=== PATIENT | female | born 1935 | race Caucasian/White ===

== ENCOUNTER 2017-05-31 07:31 | Inpatient (IN) | payer OTHER ==
[2017-05-31] VITALS (7 sets, daily range): BP systolic 132–161; BP diastolic 74–89; PULSE 74–99; TEMP 36.6–36.8; O2SAT 95–96; Ht 165.1 cm; Wt 83.0 kg
[~2017-05-31] VITALS: Ht 165.1 cm; Wt 83.0 kg
[~2017-05-31 07:31] MED LIST: ALEN1TAB21 PO; ASPI81TA21 PO; CALC1TAB64 PO; LEVO75TA5 PO; VTMD PO; ZCR40 PO
[2017-05-31] MEDS ORDERED: SODIUM CHLORIDE 0.9% 1000ML 1,000 ML IV STA ×2 (07:33)
[2017-05-31] MEDS ORDERED: LORAZEPAM 2 MG/ML 1 ML VIAL IV STA (07:44)
[2017-05-31] MEDS ORDERED: HALOPERIDOL LACTATE 5 MG/ML 1 ML VIAL IV STA (07:46)
[2017-05-31 08:30] LABS: BASO % 0.4 %; BASO ABS # 0.03 K/uL (0-0.2); COMPLETE YES; EOS % 3.3 %; HEMATOCRIT 42.3 % (37-47); IG% 0.1 %; LYMPH % 24.5 %; LYMPH ABS # 1.71 K/uL (1.2-3.4); MEAN CELL VOLUME 90.2 fL (80-100); MEAN CORPUSCULAR HGB CONC 32.2 g/dl (32-36); MEAN PLATELET VOLUME 9.3 fL (7.4-10.4); MONO % 7.2 %; NEUT % 64.5 %; PLATELET COUNT 188 K/uL (130-400); RED BLOOD COUNT 4.69 M/uL (4.2-5.4); WHITE BLOOD COUNT 6.98 K/uL (4.8-10.8)
[2017-05-31 08:41] LABS: INR 0.9 (0.9-1.1); PARTIAL THROMBOPLASTIN RATIO 0.9
--- NOTE | 2017-05-31 08:42 | DIAGNOSTIC IMAGING REPORT ---
CHEST ONE VIEW PORTABLE CLINICAL HISTORY: 81 years-old Female presenting with EVALUATE WEAKNESS. TECHNIQUE: Portable upright AP view of the chest was obtained. COMPARISON: None. FINDINGS: Atherosclerosis of the aortic arch. Cardiomediastinal silhouette otherwise normal. Lungs and pleural spaces clear. Degenerative changes of the right acromioclavicular joint. Upper abdomen normal. IMPRESSION: 1. No acute cardiopulmonary disease. Electronically signed by: Braxton Ruiz M.D. 05/31/2017 8:41 AM Dictated Date/Time: 05/31/2017 8:39 AM
[2017-05-31 08:49] LABS: ALT/SGPT 29 U/L (12-78); BLOOD UREA NITROGEN 24 mg/dl (7-18); CALCIUM 9.2 mg/dl (8.5-10.1); CARBON DIOXIDE 24 mmol/L (21-32); CHLORIDE 110 mmol/L (98-107); GLUCOSE 101 mg/dl (70-99); MAGNESIUM 2.5 mg/dl (1.8-2.4); POTASSIUM 3.5 mmol/L (3.5-5.1); SODIUM 143 mmol/L (136-145)
--- NOTE | 2017-05-31 08:54 | DIAGNOSTIC IMAGING REPORT ---
HEAD WITHOUT CONTRAST (CT) HISTORY: 81-year-old female presents with acute weakness and altered mental status. TECHNIQUE: Multiple axial CT images of the head were obtained without contrast. COMPARISON: Head CT 07/17/2010. FINDINGS: No acute intracranial hemorrhage, midline shift, mass, large territorial ischemia or abnormal extra-axial collection. There is moderate cerebral and cerebellar atrophy with ex vacuo ventriculomegaly confluent areas of low-attenuation within the subcortical, deep and periventricular white matter of the cerebral hemispheres bilaterally, progressed from 07/17/2010. The calvarium is intact. The mastoid air cells and middle ear cavities are clear. Note is made of a right anshul bullosa. There is mild ethmoid sinus disease. Soft tissues are unremarkable. Evaluation of the skull base is limited secondary to patient motion. IMPRESSION: 1. No acute intracranial abnormality. 2. Moderate cerebral and cerebellar atrophy with background chronic microvascular ischemic changes, progressed from 07/17/2010. The above report was generated using voice recognition software. It may contain grammatical, syntax or spelling errors. Electronically signed by: Manish Al M.D. 05/31/2017 8:53 AM Dictated Date/Time: 05/31/2017 8:49 AM
[2017-05-31 08:57] LABS: ALKALINE PHOSPHATASE 55 U/L (45-117); AST/SGOT 25 U/L (15-37); CKMB/CK RATIO 1.9 (0-3.0)
[2017-05-31 08:58] LABS: URINE APPEARANCE CLEAR (CLEAR); URINE BILIRUBIN NEG (NEG); URINE COLOR YELLOW; URINE NITRITE NEG (NEG); URINE PH 6.5 (4.5-7.5); UROBILINOGEN NEG (NEG)
[2017-05-31] MEDS ORDERED: CALC500C70 PO (08:58)
[2017-05-31] MEDS ORDERED: CHOL2000 PO (08:58)
[2017-05-31] MEDS ORDERED: LEVO88TA3 PO (08:58)
[2017-05-31 09:01] LABS: MANUAL MICROSCOPIC REQUIRED? NO; REVIEW REQ? NO
--- NOTE | 2017-05-31 09:02 | DIAGNOSTIC IMAGING REPORT ---
CERVICAL SPINE W/O CLINICAL HISTORY: 81 years-old Female presenting with fall. TECHNIQUE: Multidetector CT of the cervical spine was performed without the use of intravenous contrast. IV contrast: None. COMPARISON: None. CT DOSE: The estimated cumulative dose is 1567.75 mGy.cm. FINDINGS: Webbing Seamer Pound Net topogram: Unremarkable. Straightening of normal cervical lordosis may be due to the presence of a cervical collar. Vertebral body heights and alignment maintained. Intervertebral disc spaces preserved. No acute fracture or subluxation. Multilevel degenerative change primarily consisting of left sided facet arthropathy and small disc osteophyte complex at C5-6. No significant osseous stenosis of the spinal canal or neural foramina results. Mild degenerative change of the atlantoaxial articulation. No prevertebral soft tissue swelling. Limited intracranial evaluation demonstrates ex vacuo dilatation of the ventricular system with extensive periventricular white matter hypoattenuation, likely related to chronic small vessel ischemic change. Please see separately dictated CT of the head for additional findings. Orbits normal. Lung apices clear. IMPRESSION: 1. No acute fracture or subluxation. 2. Multilevel degenerative change without significant osseous stenosis of the spinal canal or neural foramina. Electronically signed by: Braxton Ruiz M.D. 05/31/2017 9:01 AM Dictated Date/Time: 05/31/2017 8:53 AM
[2017-05-31] MEDS ORDERED: ACETAMINOPHEN 325 MG TAB PO PRN (10:00)
[2017-05-31] MEDS ORDERED: ONDANSETRON INJ 2 MG/ML 2 ML VIAL IV PRN (10:00)
[2017-05-31] MEDS ORDERED: IV FLUIDS COMPLETED PRN (10:30)
--- NOTE | 2017-05-31 12:23 | History and Physical ---
History & Physical Date & Time of Service: May 31, 2017 at 12:10 Chief Complaint: Syncope And Collapse Primary Care Physician: Braxton Rosado M.D. History of Present Illness Source: patient, family, spouse 81 yo female with history of mild dementia, was brought to the ED by EMS after her found her on the floor of their bathroom around 6am this morning. The patient could not provide details of presentation as she had received Haldol for some confusion and she was sleeping. The said that he found her laying face down on the bathroom floor. There was a little blood coming from her lip. She was not answering his questions, just staring off in space. He rolled her onto her back and called EMS. She had been feeling well the previous few days according to . No signs of infection, eating well. She was slightly constipated, unsure if she was straining trying to have a BM prior to her collapse. The patient's son reports that there was urine in the toilet, appeared that she had just finished urinating. No history of syncope. In the ED her HR was elevated in low 100's but BP preserved, no hypoxia, afebrile. CT head and cervical spine normal, no fractures. CXR normal and EKG normal. Lab work normal except mild elevation in BUN. Troponin negative. Past Medical/Surgical History Medical Problems: (1) Dementia Status: Chronic (2) Esophageal Reflux Status: Chronic (3) Hyperlipidemia Nec/Nos Status: Chronic (4) Hypothyroidism Nos Status: Chronic (5) Pancreatitis Status: Resolved Family History Brother - lung cancer Sister - diabetes Social History Smoking Status: Never Smoker Marital Status: Housing status: lives with family Occupational Status: retired Immunizations History of Tetanus Vaccine?: Yes History of Pneumococcal: Unknown History of Hepatitis B Vaccine: Unknown Multi-Drug Resistant Organisms History of MDRO: No Allergies Coded Allergies: No Known Allergies (Verified , 05/31/17) Home Medications Scheduled Alendronate Sodium (Alendronate Sodium), 35 MG PO WK Aspirin Enteric Coated (Ecotrin Or Generic), 81 MG PO DAILY Calcium/Vitamin D (Os-Bakari 500 Plus D), 1 TAB PO QAM Cholecalciferol (Vitamin D3), 1 CAP PO DAILY Levothyroxine Sodium (Levothyroxine Sodium), 1 TAB PO DAILYBB Simvastatin (Simvastatin), 40 MG PO QPM Review of Systems Constitutional: No fever, No chills, No sweats, No weight loss, No weakness, No fatigue, No problem reported Eyes: No worsening of vision, No eye pain, No redness, No discharge, No diplopia, No problem reported ENT: No hearing loss, No unusual epistaxis, No nasal symptoms, No sore throat, No tinnitus, No dental problems, No trouble swallowing, No problem reported Respiratory: No cough, No sputum, No wheezing, No shortness of breath, No dyspnea on exertion, No dyspnea at rest, No hemoptysis, No problem reported Cardiovascular: No chest pain, No orthopnea, No PND, No edema, No claudication , No palpitations, No problem reported Abdomen: + constipation, No pain, No nausea, No vomiting, No diarrhea, No GI bleeding, No problem reported Musculoskeletal: No joint pain, No muscle pain, No swelling, No calf pain, No problem reported Genitourinary - Female: No dysuria, No urinary frequency, No urinary urgency, No urinary incontinence Neurologic: + memory loss (mild dementia), + weakness, + problem reported ( cannot recall events of the fall, staring blankly afterwards for 15-30 minutes) , No paralysis, No numbness/tingling, No vertigo, No balance problems Psychiatric: No depression symptoms, No anhedonism, No anxiety, No insomnia, No substance abuse, No problem reported Endocrine: No fatigue, No excessive thirst, No excessive urination, No problem reported Hematologic / Lymphatic: No abnormal bleeding/bruising, No clotting problems, No swollen lymph nodes, No night sweats, No problem reported Integumentary: No rash, No itch, No new/changing skin lesions, No color change , No bleeding, No problem reported Allergic / Immunologic: No environmental allergies, No seasonal allergies, No pet sensitivities, No food allergies, No hives, No frequent infections, No poor healing, No prolonged convalescence, No problem reported Physical Exam Vital Signs Date Time Temp Pulse Resp B/P (MAP) Pulse Ox O2 Delivery O2 Flow Rate FiO2 05/31/17 11:34 36.8 95 20 161/89 (113) 95 Room Air 05/31/17 10:41 83 16 95 05/31/17 10:19 36.8 74 16 141/83 96 Room Air 05/31/17 10:07 85 05/31/17 09:49 88 16 94 05/31/17 09:44 87 19 96 05/31/17 09:39 94 13 05/31/17 09:34 91 16 95 05/31/17 09:29 89 17 94 05/31/17 09:24 98 17 95 05/31/17 09:19 100 15 95 05/31/17 08:29 93 18 96 05/31/17 08:24 141/83 96 Room Air 05/31/17 08:01 102 21 92 05/31/17 07:56 93 Room Air 05/31/17 07:41 36.8 104 20 136/111 93 Room Air 05/31/17 07:40 108 05/31/17 07:35 136/111 General Appearance: WD/WN, no apparent distress Head: normocephalic, + evidence of trama (bruise above left eye, cut lip) Eyes: normal inspection, PERRL, EOMI, sclerae normal ENT: normal ENT inspection, hearing grossly normal, pharynx normal Neck: supple, no adenopathy, no JVD, trachea midline Respiratory/Chest: chest non-tender, lungs clear, normal breath sounds, no respiratory distress, no accessory muscle use Cardiovascular: regular rate, rhythm, no edema, no gallop, no JVD, no murmur, normal peripheral pulses Abdomen/GI: normal bowel sounds, non tender, soft, no organomegaly Back: normal inspection, no CVA tenderness, no muscle spasm, normal range of motion Extremities/Musculoskelatal: normal inspection, no calf tenderness, normal capillary refill, no pedal edema, normal range of motion, pelvis stable 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, no motor/sensory deficits, + depressed affect, + pertinent finding (sedated from Haldol) Skin: normal color, warm/dry, no rash Lymphatic: no adenopathy Diagnostics Laboratory Results Results Past 24 Hours Test 05/31/17 07:55 05/31/17 08:15 05/31/17 08:20 Range/Units White Blood Count 6.98 4.8-10.8 K/uL Red Blood Count 4.69 4.2-5.4 M/uL Hemoglobin 13.6 12.0-16.0 g/dL Hematocrit 42.3 37-47 % Mean Corpuscular Volume 90.2 80-100 fL Mean Corpuscular Hemoglobin 29.0 25-34 pg Mean Corpuscular Hemoglobin Concent 32.2 32-36 g/dl Platelet Count 188 130-400 K/uL Mean Platelet Volume 9.3 7.4-10.4 fL Neutrophils (%) (Auto) 64.5 % Lymphocytes (%) (Auto) 24.5 % Monocytes (%) (Auto) 7.2 % Eosinophils (%) (Auto) 3.3 % Basophils (%) (Auto) 0.4 % Neutrophils # (Auto) 4.50 1.4-6.5 K/uL Lymphocytes # (Auto) 1.71 1.2-3.4 K/uL Monocytes # (Auto) 0.50 0.11-0.59 K/uL Eosinophils # (Auto) 0.23 0-0.5 K/uL Basophils # (Auto) 0.03 0-0.2 K/uL RDW Standard Deviation 45.2 36.4-46.3 fL RDW Coefficient of Variation 13.7 11.5-14.5 % Immature Granulocyte % (Auto) 0.1 % Immature Granulocyte # (Auto) 0.01 0.00-0.02 K/uL Prothrombin Time 10.0 9.0-12.0 SECONDS Prothromb Time International Ratio 0.9 0.9-1.1 Activated Partial Thromboplast Time 24.2 21.0-31.0 SECONDS Partial Thromboplastin Ratio 0.9 Sodium Level 143 136-145 mmol/L Potassium Level 3.5 3.5-5.1 mmol/L Chloride Level 110 98-107 mmol/L Carbon Dioxide Level 24 21-32 mmol/L Anion Gap 9.0 3-11 mmol/L Blood Urea Nitrogen 24 7-18 mg/dl Creatinine 1.10 0.60-1.20 mg/dl Est Creatinine Clear Calc Drug Dose 42.0 ml/min Estimated GFR () 54.1 Estimated GFR (Non- 46.7 BUN/Creatinine Ratio 22.0 10-20 Random Glucose 101 70-99 mg/dl Calcium Level 9.2 8.5-10.1 mg/dl Magnesium Level 2.5 1.8-2.4 mg/dl Total Bilirubin 0.3 0.2-1 mg/dl Direct Bilirubin < 0.1 0-0.2 mg/dl Aspartate Amino Transf (AST/SGOT) 25 15-37 U/L Alanine Aminotransferase (ALT/SGPT) 29 12-78 U/L Alkaline Phosphatase 55 45-117 U/L Total Creatine Kinase 135 26-192 U/L Creatine Kinase MB 2.5 0.5-3.6 ng/ml Creatine Kinase MB Ratio 1.9 0-3.0 Troponin I < 0.015 0-0.045 ng/ml Total Protein 7.4 6.4-8.2 gm/dl Albumin 3.6 3.4-5.0 gm/dl Lipase 161 73-393 U/L Thyroid Stimulating Hormone (TSH) 1.260 0.300-4.500 uIu/ml Bedside Lactic Acid Venous 3.53 0.90-1.70 mmol/L Urine Color YELLOW Urine Appearance CLEAR CLEAR Urine pH 6.5 4.5-7.5 Urine Specific [place] 1.020 1.000-1.030 Urine Protein NEG NEG Urine Glucose (UA) NEG NEG Urine Ketones NEG NEG Urine Occult Blood TRACE NEG Urine Nitrite NEG NEG Urine Bilirubin NEG NEG Urine Urobilinogen NEG NEG Urine Leukocyte Esterase NEG NEG Urine WBC (Auto) 0 0-5 /hpf Urine RBC (Auto) 0-4 0-4 /hpf Urine Hyaline Casts (Auto) 1-5 0-5 /lpf Urine Epithelial Cells (Auto) 10-20 0-5 /lpf Urine Bacteria (Auto) NEG NEG Microbiology Results 05/31/17 Blood Culture, Received Pending 05/31/17 Blood Culture, Received Pending 05/31/17 Urine Culture, Received Pending Diagnostic Radiology CT head - no acute changes, generalized atrophy from aging/dementia CT cervical spine - no fractures CXR normal Normal EKG Impression Assessment and Plan 81 yo female with syncope and collapse, unwitnessed, occurred around 6am - Syncope and collapse: unclear etiology at this point since patient cannot provide any history observe on telemetry to r/o arrhythmia, echo, MRI brain to r/o small stroke, trend enzymes check orthostatic vitals, PT/OT consult possible that it was vasovagal since she was using bathroom and she is constipated will follow up on results of further testing - Constipation: Miralax daily, suppository PRN Hypothyroidism, Dyslipidemia, Osteoporosis, Vitamin D deficiency: chronic and stable, continue home meds DVT prophylaxis: heparin full code Level of Care Telemetry Advanced Directives Existing Living Will: Yes 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 Y/N: Yes Risk Level: High Given or contraindicated: Unfractionated heparin SQ Additional Copies To Brxaton Rosado M.D.
[2017-05-31] MEDS: NSS + 20MEQ KCL 1000ML 1,000 ML IV SCH (12:34)
[2017-05-31] MEDS: HEPARIN SOD 5000 UNIT/0.5 ML CARP SQ SCH ×2 (14:01→21:13)
--- NOTE | 2017-05-31 15:40 | EMERGENCY ROOM VISIT NOTE ---
History Report prepared by Nathanaelibvincent: Mckay Cedillo Under the Supervision of: Dr. Miguel Boyle M.D. First contact with patient: 07:33 Stated Complaint: ALTERED MENTAL STATUS History of Present Illness The patient is a 81 year old female who presents to the Emergency Room by EMS with complaints of a syncopal episode occurring shortly prior to arrival. Per son, the patient was found laying on the floor of her bathroom this morning by her . He states that the patient appeared normal yesterday. He states that she is currently close to her mental baseline. The patient's son states that the patient may have bit her tongue and appears to have hit her head. He states that the patient has a history of syncopal episodes occurring a few years ago, but has no history of seizures. Pt denies LOC, headache, fevers, chills, diaphoresis, visual changes, neck pain, chest pain, breathing difficulties, nausea, vomiting, abdominal pain, back pain, melena, hematochezia , urinary symptoms, numbness, weakness, lymphadenopathy, rash, or other complaints. HPI limited secondary to dementia. Source of History: patient, family (son) History Limited By: dementia Onset: shortly prior to arrival Quality: other (syncope) Timing: other (episode) Review of Systems ROS limited secondary to dementia. Past Medical & Surgical Medical Problems: (1) Dementia (2) Esophageal Reflux (3) Hyperlipidemia Nec/Nos (4) Hypothyroidism Nos (5) Pancreatitis (6) Pure Hypercholesterolem (7) Syncope and collapse Family History Patient reports no known family medical history. Social History Smoking Status: Never Smoker Alcohol Use: none Marital Status: Housing Status: lives with significant other Occupation Status: retired Current/Historical Medications Scheduled Alendronate Sodium (Alendronate Sodium), 35 MG PO WK Aspirin Enteric Coated (Ecotrin Or Generic), 81 MG PO DAILY Calcium/Vitamin D (Os-Bakari 500 Plus D), 1 TAB PO QAM Cholecalciferol (Vitamin D3), 1 CAP PO DAILY Levothyroxine Sodium (Levothyroxine Sodium), 1 TAB PO DAILYBB Simvastatin (Simvastatin), 40 MG PO QPM Allergies Coded Allergies: No Known Allergies (Verified , 05/31/17) Physical Exam Vital Signs Date Time Temp Pulse Resp B/P (MAP) Pulse Ox O2 Delivery O2 Flow Rate FiO2 05/31/17 09:49 88 16 94 05/31/17 09:44 87 19 96 05/31/17 09:39 94 13 05/31/17 09:34 91 16 95 05/31/17 09:29 89 17 94 05/31/17 09:24 98 17 95 05/31/17 09:19 100 15 95 05/31/17 08:29 93 18 96 05/31/17 08:24 141/83 96 Room Air 05/31/17 08:01 102 21 92 05/31/17 07:56 93 Room Air 05/31/17 07:41 36.8 104 20 136/111 93 Room Air 05/31/17 07:40 108 05/31/17 07:35 136/111 Physical Exam GENERAL: Awake, alert, well-appearing, in no distress HENT: Normocephalic. Oropharynx unremarkable. Moderate contusion to the right eyebrow. Small bite zayra to the left side of the tongue. EYES: Normal conjunctiva. Sclera non-icteric. NECK: No JVD. Cervical collar in place. RESPIRATORY: Clear to auscultation. CARDIAC: Tachycardic rate, normal rhythm. Extremities warm and well perfused. Pulses equal. ABDOMEN: Soft, non-distended. No tenderness to palpation. No rebound or guarding. No masses. RECTAL: Deferred. MUSCULOSKELETAL: Chest examination reveals no tenderness. The back is symmetrical on inspection without obvious abnormality. There is no CVA tenderness to palpation. No joint edema. LOWER EXTREMITIES: Calves are equal size bilaterally and non-tender. No edema. No discoloration. NEURO: Demented sensorium, following basic commands but needs significant verbal redirection. SKIN: No rash or jaundice noted. Medical Decision & Procedures ER Provider Diagnostic Interpretation: Radiology results as stated below per my review and radiologist interpretation: CHEST ONE VIEW PORTABLE FINDINGS: Atherosclerosis of the aortic arch. Cardiomediastinal silhouette otherwise normal. Lungs and pleural spaces clear. Degenerative changes of the right acromioclavicular joint. Upper abdomen normal. IMPRESSION: 1. No acute cardiopulmonary disease. Electronically signed by: Braxton Ruiz M.D. 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 Straightening of normal cervical lordosis may be due to the presence of a cervical collar. Vertebral body heights and alignment maintained. Intervertebral disc spaces preserved. No acute fracture or subluxation. Multilevel degenerative change primarily consisting of left sided facet arthropathy and small disc osteophyte complex at C5-6. No significant osseous stenosis of the spinal canal or neural foramina results. Mild degenerative change of the atlantoaxial articulation. No prevertebral soft tissue swelling. Limited intracranial evaluation demonstrates ex vacuo dilatation of the ventricular system with extensive periventricular white matter hypoattenuation, likely related to chronic small vessel ischemic change. Please see separately dictated CT of the head for additional findings. Orbits normal. Lung apices clear. IMPRESSION: 1. No acute fracture or subluxation. 2. Multilevel degenerative change without significant osseous stenosis of the spinal canal or neural foramina. Electronically signed by: Braxton Ruiz M.D. HEAD WITHOUT CONTRAST (CT) FINDINGS: No acute intracranial hemorrhage, midline shift, mass, large territorial ischemia or abnormal extra-axial collection. There is moderate cerebral and cerebellar atrophy with ex vacuo ventriculomegaly confluent areas of low-attenuation within the subcortical, deep and periventricular white matter of the cerebral hemispheres bilaterally, progressed from 07/17/2010. The calvarium is intact. The mastoid air cells and middle ear cavities are clear. Note is made of a right anshul bullosa. There is mild ethmoid sinus disease. Soft tissues are unremarkable. Evaluation of the skull base is limited secondary to patient motion. IMPRESSION: 1. No acute intracranial abnormality. 2. Moderate cerebral and cerebellar atrophy with background chronic microvascular ischemic changes, progressed from 07/17/2010. The above report was generated using voice recognition software. It may contain grammatical, syntax or spelling errors. Electronically signed by: Manish Al M.D. Laboratory Results 05/31/17 07:55 Red Blood Count 4.69, Mean Corpuscular Volume 90.2, Mean Corpuscular Hemoglobin 29.0, Mean Corpuscular Hemoglobin Concent 32.2, Mean Platelet Volume 9.3, Neutrophils (%) (Auto) 64.5, Lymphocytes (%) (Auto) 24.5, Monocytes (%) (Auto) 7.2, Eosinophils (%) (Auto) 3.3, Basophils (%) (Auto) 0.4, Neutrophils # (Auto) 4.50, Lymphocytes # (Auto) 1.71, Monocytes # (Auto) 0.50, Eosinophils # (Auto) 0.23, Basophils # (Auto) 0.03 05/31/17 07:55 Test 05/31/17 07:55 05/31/17 08:15 05/31/17 08:20 White Blood Count 6.98 K/uL (4.8-10.8) Red Blood Count 4.69 M/uL (4.2-5.4) Hemoglobin 13.6 g/dL (12.0-16.0) Hematocrit 42.3 % (37-47) Mean Corpuscular Volume 90.2 fL (80-100) Mean Corpuscular Hemoglobin 29.0 pg (25-34) Mean Corpuscular Hemoglobin Concent 32.2 g/dl (32-36) Platelet Count 188 K/uL (130-400) Mean Platelet Volume 9.3 fL (7.4-10.4) Neutrophils (%) (Auto) 64.5 % Lymphocytes (%) (Auto) 24.5 % Monocytes (%) (Auto) 7.2 % Eosinophils (%) (Auto) 3.3 % Basophils (%) (Auto) 0.4 % Neutrophils # (Auto) 4.50 K/uL (1.4-6.5) Lymphocytes # (Auto) 1.71 K/uL (1.2-3.4) Monocytes # (Auto) 0.50 K/uL (0.11-0.59) Eosinophils # (Auto) 0.23 K/uL (0-0.5) Basophils # (Auto) 0.03 K/uL (0-0.2) RDW Standard Deviation 45.2 fL (36.4-46.3) RDW Coefficient of Variation 13.7 % (11.5-14.5) Immature Granulocyte % (Auto) 0.1 % Immature Granulocyte # (Auto) 0.01 K/uL (0.00-0.02) Prothrombin Time 10.0 SECONDS (9.0-12.0) Prothromb Time International Ratio 0.9 (0.9-1.1) Activated Partial Thromboplast Time 24.2 SECONDS (21.0-31.0) Partial Thromboplastin Ratio 0.9 Anion Gap 9.0 mmol/L (3-11) Est Creatinine Clear Calc Drug Dose 42.0 ml/min Estimated GFR () 54.1 Estimated GFR (Non- 46.7 BUN/Creatinine Ratio 22.0 (10-20) Calcium Level 9.2 mg/dl (8.5-10.1) Magnesium Level 2.5 mg/dl (1.8-2.4) Total Bilirubin 0.3 mg/dl (0.2-1) Direct Bilirubin < 0.1 mg/dl (0-0.2) Aspartate Amino Transf (AST/SGOT) 25 U/L (15-37) Alanine Aminotransferase (ALT/SGPT) 29 U/L (12-78) Alkaline Phosphatase 55 U/L (45-117) Total Creatine Kinase 135 U/L (26-192) Creatine Kinase MB 2.5 ng/ml (0.5-3.6) Creatine Kinase MB Ratio 1.9 (0-3.0) Total Protein 7.4 gm/dl (6.4-8.2) Albumin 3.6 gm/dl (3.4-5.0) Lipase 161 U/L (73-393) Thyroid Stimulating Hormone (TSH) 1.260 uIu/ml (0.300-4.500) Bedside Lactic Acid Venous 3.53 mmol/L (0.90-1.70) Urine Color YELLOW Urine Appearance CLEAR (CLEAR) Urine pH 6.5 (4.5-7.5) Urine Specific [place] 1.020 (1.000-1.030) Urine Protein NEG (NEG) Urine Glucose (UA) NEG (NEG) Urine Ketones NEG (NEG) Urine Occult Blood TRACE (NEG) Urine Nitrite NEG (NEG) Urine Bilirubin NEG (NEG) Urine Urobilinogen NEG (NEG) Urine Leukocyte Esterase NEG (NEG) Urine WBC (Auto) 0 /hpf (0-5) Urine RBC (Auto) 0-4 /hpf (0-4) Urine Hyaline Casts (Auto) 1-5 /lpf (0-5) Urine Epithelial Cells (Auto) 10-20 /lpf (0-5) Urine Bacteria (Auto) NEG (NEG) Laboratory results reviewed by me Medications Administered Medications (Trade) Dose Ordered Sig/Minerva Route Start Time Stop Time Status Last Admin Dose Admin Sodium Chloride 1,000 ml @ 999 mls/hr Q1H1M STAT IV 05/31/17 07:33 05/31/17 08:33 DC 05/31/17 07:57 999 MLS/HR Sodium Chloride 1,000 ml @ 125 mls/hr Q8H STAT IV 05/31/17 07:33 05/31/17 11:14 DC 05/31/17 08:57 125 MLS/HR Haloperidol Lactate (Haldol Inj) 2 mg NOW STAT IV 05/31/17 07:46 05/31/17 07:47 DC 05/31/17 07:57 2 MG ECG Indication: syncope Rate (beats per minute): 107 Rhythm: sinus tachycardia Findings: Q waves (Anteroseptal), no ectopy, other (Left atrial enlargement) ED Course 0737: The patient was evaluated in room B4B. A complete history and physical exam was performed. 0733: Ordered Sodium Chloride 1000 ml @ 125 mls/hr IV, Sodium Chloride 1000 ml @ 999 mls/hr IV. 0744: Ordered Ativan Inj 0.5 mg IV, Haldol Inj 2 mg IV. 0924: Upon reexamination, the patient was resting comfortably. I removed her cervical collar. I discussed the test results and treatment plan with her. The patient will be evaluated for further management. Medical Decision Prior records/ancillary studies reviewed and summarized above. Nursing notes reviewed and agree them. Additional history obtained from the son. The patient's history was concerning for altered mental status, a fall, and head injury. Differential diagnosis: Etiologies such as syncope, SAH, SDH, seizure, infection, hypoglycemia, electrolyte abnormalities, cardiac sources, intracerebral event, toxicologic, neurologic, as well as others were entertained. Physical examination: As above. ER treatment provided: IV Lock Normal saline hydration Haldol 2 mg IV was given secondary to the patient's agitation and dementia. She was pulling at her lines and cervical collar. Son states that is a normal behavior for her due to the dementia. On reassessment the patient felt better. Diagnostics interpretation by me: ECG: No acute ischemic change The labs revealed an unremarkable CBC and chemistry panel. Coags negative. Urinalysis negative. Cardiac markers, troponin, and TSH negative Imaging studies: CT is as above. The patient's history is very concerning. She may have had a syncopal episode or possible seizure. Further evaluation and management in the hospital is appropriate. Consultation: A consultation was placed with the hospitalist. The case was discussed and diagnostics were reviewed. The patient was evaluated in the ER for further treatment. Consults Time Called: [phone] Consulting Physician: Dr. Grimes -[facility] [place] Returned Call: [phone] Discussed the patient's case. The patient will be evaluated for further treatment and disposition. Impression Primary Impression: Altered mental status Additional Impressions: seizure vs syncope Closed head injury Scribe Attestation The scribe's documentation has been prepared under my direction and personally reviewed by me in its entirety. I confirm that the note above accurately reflects all work, treatment, procedures, and medical decision making performed by me. Departure Information Dispostion Being Evaluated By Hospitalist Referrals Braxton Rosado M.D. (PCP) Problem Qualifiers
--- NOTE | 2017-05-31 18:36 | ECHOCARDIOGRAM REPORT ---
*NOTICE TO RECEIVING [employer] AGENCY This information is strictly Confidential and protected under [place] law. [place] law prohibits you from making any further disclosure of this information unless further disclosure is expressly permitted by the written consent of the person to whom it pertains or is authorized by law. A general authorization for the release of medical or other information is not sufficient for this purpose. Hospital accepts no responsibility if the information is made available to any other person, INCLUDING THE PATIENT. Interpretation Summary * Name: MARTELL LEE Study Date: 05/31/2017 02:54 PM BP: 161/89 mmHg * Patient Location: C.EDB HR: 89 * : 1935 (M/d/yyyy) Gender: Female Height: 65 in * Age: 81 yrs Ethnicity: [place] Weight: 165 lb * Ordering Physician: Daniel Melendez * Referring Physician: Self, Referred * Performed By: Les Nicholson RCS * * Reason For Study: Syncope * BSA: 1.8 m2 * Technically Difficult images due to patient non-compliance, no Subcostal views obtained patient became aggravated. * -- Conclusions -- * 1. Normal left ventricular size with hyperdynamic systolic function. EF > 70%. No definite regional wall motion abnormalities. No left ventricular hypertrophy. * 2. No significant valvular abnormalities visualized, but valves not well seen. * 3. Technically difficult study. * 4. No prior study available for comparison. Procedure Details * Left Ventricle The left ventricle is normal in size. There is normal left ventricular wall thickness. The left ventricle is hyperdynamic. No regional wall motion abnormalities noted. * Right Ventricle The right ventricle is normal in size and function. The right ventricular systolic function is normal as assessed by tricuspid annular plane systolic excursion (TAPSE) (normal >1.5 cm). * Atria The left atrial size is normal. Right atrial size is normal. * Mitral Valve The mitral valve is grossly normal. There is no mitral valve stenosis. Significant mitral regurgitation is absent. * Tricuspid Valve The tricuspid valve is not well visualized. There is no tricuspid stenosis. * Aortic Valve The aortic valve is not well visualized. No hemodynamically significant valvular aortic stenosis. There is no significant aortic regurgitation. * Pulmonic Valve The pulmonic valve is not well visualized. * Great Vessels The aortic root is normal size. * Pericardium/Pleural There is no pericardial effusion. * Great Vessels IVC not visualized. * * MMode 2D Measurements and Calculations * IVSd 0.77 cm * * LVIDd 4.0 cm * LVIDs 2.4 cm * LVPWd 0.78 cm * * IVS/LVPW 10 * FS 39.0 % * EDV(Teich) 68.8 ml * ESV(Teich) 20.6 ml * EF(Teich) 70.0 % * * EDV(cubed) 62.7 ml * ESV(cubed) 14.2 ml * EF(cubed) 77.3 % * * LV mass(C)d 88.4 grams * LV mass(C)dI 48.5 grams/m\S\2 * * SV(Teich) 48.2 ml * SI(Teich) 26.5 ml/m\S\2 * SV(cubed) 48.5 ml * SI(cubed) 26.6 ml/m\S\2 * * Ao root diam 3.1 cm * Ao root area 7.5 cm\S\2 * * LVAd ap4 21.0 cm\S\2 * LVLd ap4 7.8 cm * EDV(MOD-sp4) 46.5 ml * EDV(sp4-el) 47.8 ml * LVAs ap4 8.5 cm\S\2 * LVLs ap4 5.8 cm * ESV(MOD-sp4) 10.8 ml * ESV(sp4-el) 10.7 ml * EF(MOD-sp4) 76.7 % * EF(sp4-el) 77.6 % * * LVAd ap2 17.7 cm\S\2 * LVLd ap2 7.1 cm * EDV(MOD-sp2) 36.5 ml * EDV(sp2-el) 37.7 ml * LVAs ap2 9.2 cm\S\2 * LVLs ap2 5.6 cm * ESV(MOD-sp2) 12.6 ml * ESV(sp2-el) 12.7 ml * EF(MOD-sp2) 65.5 % * EF(sp2-el) 66.4 % * * LVLd %diff -11.03 % * EDV(MOD-bp) 42.3 ml * LVLs %diff -3.04 % * ESV(MOD-bp) 11.8 ml * EF(MOD-bp) 72.2 % * * SV(MOD-sp4) 35.7 ml * SI(MOD-sp4) 19.6 ml/m\S\2 * * SV(MOD-sp2) 23.9 ml * SI(MOD-sp2) 13.1 ml/m\S\2 * * SV(MOD-bp) 30.6 ml * SI(MOD-bp) 16.8 ml/m\S\2 * * SV(sp4-el) 37.1 ml * SI(sp4-el) 20.3 ml/m\S\2 * * SV(sp2-el) 25.1 ml * SI(sp2-el) 13.7 ml/m\S\2 * * * * Doppler Measurements and Calculations * MV E max talib 89.0 cm/sec * * Ao V2 max 107.1 cm/sec * Ao max PG 4.6 mmHg * Ao max PG (full) 0.95 mmHg * * LV V1 max PG 3.6 mmHg * * LV V1 max 95.4 cm/sec * *
[2017-05-31] MEDS: SIMVASTATIN 40 MG TAB PO SCH (21:09)
[2017-06-01] MEDS: NSS + 20MEQ KCL 1000ML 1,000 ML IV SCH (00:26)
[2017-06-01 04:19] VITALS: BP 168/79; PULSE 87; TEMP 36.6; O2SAT 94
[2017-06-01] MEDS: LEVOTHYROXINE 88 MCG TAB PO SCH (06:23)
[2017-06-01] MEDS: HEPARIN SOD 5000 UNIT/0.5 ML CARP SQ SCH ×3 (06:30→20:44)
[2017-06-01 07:18] VITALS: BP 133/79; PULSE 89; TEMP 36.7; O2SAT 96
[2017-06-01 07:36] LABS: BASO % 0.2 %; BASO ABS # 0.02 K/uL (0-0.2); COMPLETE YES; HEMATOCRIT 43.8 % (37-47); IG% 0.3 %; LYMPH % 13.3 %; MEAN CELL VOLUME 88.8 fL (80-100); MEAN CORPUSCULAR HEMOGLOBIN 28.2 pg (25-34); MEAN CORPUSCULAR HGB CONC 31.7 g/dl (32-36); MEAN PLATELET VOLUME 9.4 fL (7.4-10.4); NEUT % 77.2 %; PLATELET COUNT 211 K/uL (130-400); RED BLOOD COUNT 4.93 M/uL (4.2-5.4); WHITE BLOOD COUNT 10.49 K/uL (4.8-10.8)
[2017-06-01 08:00] VITALS: O2SAT 96
[2017-06-01] MEDS: CALCIUM 600MG + VIT D 400 IU TAB PO SCH (08:00)
[2017-06-01] MEDS: ASPIRIN 81 MG ECTAB PO SCH (08:00)
[2017-06-01 08:14] LABS: BUN/CREATININE RATIO 12.5 (10-20); CALCIUM 9.5 mg/dl (8.5-10.1); CREATININE 0.84 mg/dl (0.60-1.20); MAGNESIUM 2.2 mg/dl (1.8-2.4); POTASSIUM 3.3 mmol/L (3.5-5.1)
[2017-06-01 08:32] VITALS: BP_SYST 121; BP_SYST 133; BP_SYST 156; BP_DIAS 76; BP_DIAS 83; PULSE 100; PULSE 111; PULSE 67
[2017-06-01] MEDS ORDERED: POTASSIUM CHLORIDE 20 MEQ TABCR PO ONE (10:15)
--- NOTE | 2017-06-01 12:50 | DIAGNOSTIC IMAGING REPORT ---
ORBITS FOR MRI HISTORY: pre-MRI screening. COMPARISON: None. FINDINGS: There are no radiopaque foreign bodies identified within the orbits. IMPRESSION: No radiopaque foreign bodies identified within the orbits. The above report was generated using voice recognition software. It may contain grammatical, syntax or spelling errors. Electronically signed by: Hector Arreola M.D. 06/01/2017 12:49 PM Dictated Date/Time: 06/01/2017 12:48 PM
--- NOTE | 2017-06-01 13:09 | Progress Note ---
Subjective Date of Service: Jun 01, 2017. Subjective Pt evaluation today including: conversation w/ patient, conversation w/ family ( and son at the bedside), physical exam, lab review, review of studies, review of inpatient medication list Pain: no pain PO Intake: adequate Voiding: no voiding problems patient pleasantly confused and delirious overnight calmer now patient agrees to the MRI brain this AM, son will go with her to keep her calm tongue very soon and cut, looks like it was bitten, discussed possibility of seizure reviewed lab work, troponin negative and CBC and BMP normal echo normal Problem List Medical Problems: (1) Altered mental status Status: Acute (2) Closed head injury Status: Acute (3) Foot pain, left Status: Acute Review of Systems Constitutional: + weakness, + fatigue Neurologic: + memory loss, + weakness All Other Systems: Reviewed and Negative Medications Current Inpatient Medications Medications (Trade) Dose Ordered Sig/Minerva Route Start Time Stop Time Status Last Admin Dose Admin Heparin Sodium (Porcine) (Heparin Sq 5000 Unit/0.5ml) 5,000 unit Q8 SQ 05/31/17 14:00 06/30/17 13:59 06/01/17 06:30 5,000 UNIT Acetaminophen (Tylenol Tab) 650 mg Q4H PRN PO 05/31/17 10:00 06/30/17 09:59 05/31/17 19:39 650 MG Ondansetron HCl (Zofran Inj) 4 mg Q6H PRN IV 05/31/17 10:00 06/30/17 09:59 Aspirin (Ecotrin Tab) 81 mg DAILY PO 06/01/17 09:00 07/01/17 08:59 06/01/17 08:00 81 MG Calcium/Vitamin D (Caltrate Plus Tab) 1 tab QAM PO 06/01/17 09:00 07/01/17 08:59 06/01/17 08:00 1 TAB Levothyroxine Sodium (Synthroid Tab) 88 mcg DAILYBB PO 06/01/17 06:30 07/01/17 06:59 06/01/17 06:23 88 MCG Simvastatin (Zocor Tab) 40 mg QPM PO 05/31/17 21:00 06/30/17 20:59 05/31/17 21:09 40 MG Miscellaneous (Iv Fluids Completed) 1 ea PRN PRN N/A 05/31/17 10:30 05/31/18 10:29 Objective Vital Signs Date Time Temp Pulse Resp B/P (MAP) Pulse Ox O2 Delivery O2 Flow Rate FiO2 06/01/17 08:32 67 156/83 (107) 100 121/76 (91) 111 133/76 (95) 06/01/17 08:00 96 Room Air 06/01/17 07:18 36.7 89 16 133/79 (97) 96 06/01/17 04:19 36.6 87 20 168/79 (108) 94 Room Air 06/01/17 04:00 Room Air 05/31/17 23:59 Room Air 05/31/17 23:58 36.6 90 18 132/74 (93) 96 Room Air 05/31/17 20:00 95 Room Air 05/31/17 19:02 36.8 99 18 149/79 (102) 96 Room Air 05/31/17 16:00 95 Room Air 05/31/17 14:54 36.8 93 18 149/79 (102) 95 Physical Exam General Appearance: WD/WN, no apparent distress Eyes: normal inspection, EOMI, sclerae normal ENT: hearing grossly normal, pharynx normal, + pertinent finding (tongue bitten ) Neck: supple, no adenopathy, no JVD, trachea midline Respiratory/Chest: chest non-tender, lungs clear, normal breath sounds, no respiratory distress, no accessory muscle use Cardiovascular: regular rate, rhythm, no edema, no gallop, no JVD, no murmur Abdomen: normal bowel sounds, non tender, soft, no organomegaly Extremities: normal range of motion, non-tender, normal inspection, no pedal edema, no calf tenderness, pelvis stable Neurologic/Psychiatric: 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, alert, normal mood/affect, oriented x 3, + motor weakness, + disoriented Skin: normal color, warm/dry, no rash Laboratory Results Last 24 Hours Test 05/31/17 14:09 05/31/17 20:06 06/01/17 06:30 Troponin I 0.038 ng/ml 0.023 ng/ml White Blood Count 10.49 K/uL Red Blood Count 4.93 M/uL Hemoglobin 13.9 g/dL Hematocrit 43.8 % Mean Corpuscular Volume 88.8 fL Mean Corpuscular Hemoglobin 28.2 pg Mean Corpuscular Hemoglobin Concent 31.7 g/dl Platelet Count 211 K/uL Mean Platelet Volume 9.4 fL Neutrophils (%) (Auto) 77.2 % Lymphocytes (%) (Auto) 13.3 % Monocytes (%) (Auto) 8.0 % Eosinophils (%) (Auto) 1.0 % Basophils (%) (Auto) 0.2 % Neutrophils # (Auto) 8.10 K/uL Lymphocytes # (Auto) 1.40 K/uL Monocytes # (Auto) 0.84 K/uL Eosinophils # (Auto) 0.10 K/uL Basophils # (Auto) 0.02 K/uL RDW Standard Deviation 45.0 fL RDW Coefficient of Variation 13.7 % Immature Granulocyte % (Auto) 0.3 % Immature Granulocyte # (Auto) 0.03 K/uL Sodium Level 139 mmol/L Potassium Level 3.3 mmol/L Chloride Level 107 mmol/L Carbon Dioxide Level 27 mmol/L Anion Gap 5.0 mmol/L Blood Urea Nitrogen 11 mg/dl Creatinine 0.84 mg/dl Est Creatinine Clear Calc Drug Dose 54.9 ml/min Estimated GFR () 75.0 Estimated GFR (Non- 64.7 BUN/Creatinine Ratio 12.5 Random Glucose 100 mg/dl Calcium Level 9.5 mg/dl Magnesium Level 2.2 mg/dl Assessment and Plan 81 yo female with syncope and collapse, unwitnessed, occurred around 6am the day of admission - Syncope and collapse: unclear etiology at this point since patient cannot provide any history with evidence of bitten tongue this AM, concerned about possible seizure will try to obtain MRI to r/o ischemic stroke as cause no arrhythmia, transfer off tele troponin negative, echo normal, normal orthostatic vitals PT/OT consult possible that it was vasovagal since she was using bathroom and she was constipated - Constipation: Miralax daily, suppository PRN Hypothyroidism, Dyslipidemia, Osteoporosis, Vitamin D deficiency: chronic and stable, continue home meds DVT prophylaxis: heparin full code
--- NOTE | 2017-06-01 14:35 | DIAGNOSTIC IMAGING REPORT ---
BRAIN COMBO CLINICAL HISTORY: syncope, confusion COMPARISON STUDY: 04/21/2014 TECHNIQUE: Utilizing a 1.5 Bambi magnet and dedicated coil, multiplanar, multiecho imaging of the brain was performed pre and postcontrast administration. IV administration of 8.0 mL of Gadavist contrast was uneventful. FINDINGS: Study is again limited due to patient motion. Moderate cerebellar as well as cerebral atrophy. No evidence for an acute ischemic event. Considerable chronic small vessel change. Transaxial postcontrast images suggest punctate foci of enhancement in a cortical distribution over the superior right parietal region. This, however is not duplicated on the coronal images. Artifact is presumably the L3 and no abnormal dural or meningeal enhancement. IMPRESSION: Very limited study due to patient motion. Atrophy and chronic small vessel change. No major abnormality is appreciated again within limitations of severe patient motion The above report was generated using voice recognition software. It may contain grammatical, syntax or spelling errors. Electronically signed by: Hector Arreola M.D. 06/01/2017 2:34 PM Dictated Date/Time: 06/01/2017 2:29 PM
[2017-06-01 16:00] VITALS: BP 169/86; PULSE 84; TEMP 36.9; O2SAT 95
[2017-06-01] MEDS: SIMVASTATIN 40 MG TAB PO SCH (20:39)
[2017-06-01 23:23] VITALS: BP 157/84; PULSE 99; TEMP 36.8; O2SAT 93
[2017-06-02] MEDS: LEVOTHYROXINE 88 MCG TAB PO SCH (06:25)
[2017-06-02] MEDS: HEPARIN SOD 5000 UNIT/0.5 ML CARP SQ SCH ×3 (06:25→21:34)
[2017-06-02 07:21] VITALS: BP 137/77; PULSE 93; TEMP 36.8; O2SAT 98
[2017-06-02] MEDS: ASPIRIN 81 MG ECTAB PO SCH (08:29)
[2017-06-02] MEDS: CALCIUM 600MG + VIT D 400 IU TAB PO SCH (08:29)
[2017-06-02 08:46] VITALS: O2SAT 96
--- NOTE | 2017-06-02 13:51 | Progress Note ---
Subjective Date of Service: Jun 02, 2017. Subjective Pt evaluation today including: conversation w/ patient, conversation w/ family (, sons at the bedside), physical exam, review of studies (MRI negative for stroke), review of inpatient medication list Pain: no pain PO Intake: adequate Voiding: no voiding problems patient feeling well, no pain, no distress was confused last night, family stayed with her most of the night discussed discharge plans, family would like patient to go to [facility] for rehab reviewed MRI brain results, no signs of stroke or tumor Problem List Medical Problems: (1) Altered mental status Status: Acute (2) Closed head injury Status: Acute (3) Foot pain, left Status: Acute Review of Systems Constitutional: + weakness, + fatigue ENT: + problem reported (tongue pain) Neurologic: + memory loss All Other Systems: Reviewed and Negative Medications Current Inpatient Medications Medications (Trade) Dose Ordered Sig/Minerva Route Start Time Stop Time Status Last Admin Dose Admin Heparin Sodium (Porcine) (Heparin Sq 5000 Unit/0.5ml) 5,000 unit Q8 SQ 05/31/17 14:00 06/30/17 13:59 06/02/17 06:25 5,000 UNIT Acetaminophen (Tylenol Tab) 650 mg Q4H PRN PO 05/31/17 10:00 06/30/17 09:59 05/31/17 19:39 650 MG Ondansetron HCl (Zofran Inj) 4 mg Q6H PRN IV 05/31/17 10:00 06/30/17 09:59 Aspirin (Ecotrin Tab) 81 mg DAILY PO 06/01/17 09:00 07/01/17 08:59 06/02/17 08:29 81 MG Calcium/Vitamin D (Caltrate Plus Tab) 1 tab QAM PO 06/01/17 09:00 07/01/17 08:59 06/02/17 08:29 1 TAB Levothyroxine Sodium (Synthroid Tab) 88 mcg DAILYBB PO 06/01/17 06:30 07/01/17 06:59 06/02/17 06:25 88 MCG Simvastatin (Zocor Tab) 40 mg QPM PO 05/31/17 21:00 06/30/17 20:59 06/01/17 20:39 40 MG Miscellaneous (Iv Fluids Completed) 1 ea PRN PRN N/A 05/31/17 10:30 7/14/18 10:29 Objective Vital Signs Date Time Temp Pulse Resp B/P (MAP) Pulse Ox O2 Delivery O2 Flow Rate FiO2 06/02/17 08:46 96 Room Air 06/02/17 07:21 36.8 93 17 137/77 (97) 98 06/02/17 00:05 Room Air 06/01/17 23:23 36.8 99 20 157/84 (108) 93 Room Air 06/01/17 16:00 Room Air 06/01/17 16:00 36.9 84 18 169/86 (113) 95 Room Air Physical Exam General Appearance: WD/WN, no apparent distress Neck: supple, no adenopathy, no JVD, trachea midline Respiratory/Chest: chest non-tender, lungs clear, normal breath sounds, no respiratory distress, no accessory muscle use Cardiovascular: regular rate, rhythm, no edema, no gallop, no JVD, no murmur Abdomen: normal bowel sounds, non tender, soft, no organomegaly Extremities: normal range of motion, non-tender, normal inspection, no pedal edema, no calf tenderness 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 IV administration of 8.0 mL of Gadavist contrast was uneventful. FINDINGS: Study is again limited due to patient motion. Moderate cerebellar as well as cerebral atrophy. No evidence for an acute ischemic event. Considerable chronic small vessel change. Transaxial postcontrast images suggest punctate foci of enhancement in a cortical distribution over the superior right parietal region. This, however is not duplicated on the coronal images. Artifact is presumably the L3 and no abnormal dural or meningeal enhancement. IMPRESSION: Very limited study due to patient motion. Atrophy and chronic small vessel change. No major abnormality is appreciated again within limitations of severe patient motion Assessment and Plan 81 yo female with syncope and collapse, unwitnessed, occurred around 6am the day of admission - Syncope and collapse: unclear etiology at this point since patient cannot provide any history MRI brain with motion, but no obvious stroke or tumor no arrhythmia, transfer off tele troponin negative, echo normal, normal orthostatic vitals PT/OT consult - plan for [facility] for rehab possible that it was vasovagal since she was using bathroom and she was constipated - Constipation: Miralax daily, suppository PRN, resolved Hypothyroidism, Dyslipidemia, Osteoporosis, Vitamin D deficiency: chronic and stable, continue home meds DVT prophylaxis: heparin full code
[2017-06-02 20:00] VITALS: O2SAT 96
[2017-06-02] MEDS: SIMVASTATIN 40 MG TAB PO SCH (21:34)
[2017-06-02 23:22] VITALS: BP 121/80; PULSE 80; TEMP 36.8; O2SAT 93
[2017-06-03] MEDS: LEVOTHYROXINE 88 MCG TAB PO SCH (06:12)
[2017-06-03] MEDS: HEPARIN SOD 5000 UNIT/0.5 ML CARP SQ SCH ×2 (06:13→14:00)
[2017-06-03 07:40] VITALS: BP 113/63; PULSE 80; TEMP 36.8; O2SAT 90
[2017-06-03] MEDS: ASPIRIN 81 MG ECTAB PO SCH (07:41)
[2017-06-03] MEDS: CALCIUM 600MG + VIT D 400 IU TAB PO SCH (07:41)
[2017-06-03 09:57] VITALS: BP 133/75; PULSE 78; O2SAT 92
--- NOTE | 2017-06-03 12:20 | Discharge Instructions ---
Discharge Instructions Date of Service Jun 03, 2017. Admission Reason for Admission: Syncope And Collapse Discharge Discharge Diagnosis / Problem: syncope Discharge Goals Goal(s): Improve function Activity Recommendations Activity Limitations: resume your previous activity . Instructions / Follow-Up Instructions / Follow-Up Primary care Physician in 1 week Current Hospital Diet Patient's current hospital diet: AHA Diet (Heart Healthy) Discharge Diet Recommended Diet: Low Sodium Diet (2gm Na) Pending Studies Studies pending at discharge: no Medical Emergencies . Who to Call and When: Medical Emergencies: If at any time you feel your situation is an emergency, please call 911 immediately. . Non-Emergent Contact Non-Emergency issues call your: Primary Care Provider . Past History Medical & Surgical History: (1) Syncope and collapse (2) Constipation (3) Dementia . "Provider Documentation" section prepared by Guanako Sequeira. . VTE Core Measure Inpt VTE Proph given/why not?: Unfractionated heparin SQ
[2017-06-03 12:41] VITALS: BP 133/75; PULSE 78; TEMP 36.8; O2SAT 92
== END 2017-06-03 14:47 | DRG 312 ==
LOC: EDBD 07:31 → C.EDB 07:33 → C.MED 09:56 → EDBEDREQ 10:01 → ENRESERV 10:09 → OBSVTOIN 10:28 → C.MED 06-01 10:11
PROVIDERS: ADMIT Internal Medicine; ATTEND Internal Medicine
DX: R55 Syncope and collapse (principal); K59.00 Constipation, unspecified; S09.90XA Unspecified injury of head, initial encounter; F03.90 Unspecified dementia, unspecified severity, without behavioral disturbance, psychotic disturbance, mood disturbance, and anxiety; E03.9 Hypothyroidism, unspecified; E78.5 Hyperlipidemia, unspecified; E78.00 Pure hypercholesterolemia, unspecified; M81.0 Age-related osteoporosis without current pathological fracture; E55.9 Vitamin D deficiency, unspecified; Z51.81 Encounter for therapeutic drug level monitoring; Z79.899 Other long term (current) drug therapy; Z79.82 Long term (current) use of aspirin; Z80.1 Family history of malignant neoplasm of trachea, bronchus and lung; Z83.3 Family history of diabetes mellitus; W18.30XA Fall on same level, unspecified, initial encounter; Y92.002 Bathroom of unspecified non-institutional (private) residence as the place of occurrence of the external cause; Y99.8 Other external cause status

== ENCOUNTER 2017-08-23 10:03 | Observation (INO) | payer OTHER ==
[~2017-08-23] VITALS: Ht 167.6 cm; Wt 65.6 kg
[~2017-08-23 10:03] MED LIST changes: -CALC1TAB64 PO; +CALC500C70 PO; +CHOL2000 PO; -LEVO75TA5 PO; +LEVO88TA3 PO; +SODIUM CHLORIDE 0.9% 1000ML 1,000 ML IV SCH; -VTMD PO
--- NOTE | 2017-08-23 10:33 | DIAGNOSTIC IMAGING REPORT ---
HEAD WITHOUT CONTRAST (CT) CLINICAL HISTORY: 82 years-old Female with Stroke. Acute strokelike symptoms status post fall TECHNIQUE: Multiple axial CT images of the head were obtained without contrast. A dose lowering technique was utilized adhering to the principles of ALARA. CT DOSE: 537.48 mGy.cm COMPARISON: CT head 05/31/2017. FINDINGS: No acute intracranial hemorrhage, midline shift, mass, large territorial ischemia or abnormal extra-axial collection. Moderate atrophy. Extensive background chronic microvascular ischemic changes. The calvarium is intact. The paranasal sinuses, mastoid air cells, and middle ear cavities are clear. Right temporal scalp hematoma measures 4.0 x 0.7 cm. Mild left periorbital soft tissue swelling also noted. IMPRESSION: 1. No acute intracranial abnormality. 2. 4.0 cm right scalp hematoma with mild left periorbital soft tissue swelling. No calvarial fracture. The above report was generated using voice recognition software. It may contain grammatical, syntax or spelling errors. Electronically signed by: Manish Al M.D. 08/23/2017 10:31 AM Dictated Date/Time: 08/23/2017 10:28 AM
[2017-08-23] MEDS ORDERED: SODIUM CHLORIDE 0.9% 1000ML 1,000 ML IV STA (10:48)
[2017-08-23] MEDS ORDERED: SODIUM CHLORIDE 0.9% 500ML 500 ML IV STA (10:48)
--- NOTE | 2017-08-23 10:54 | DIAGNOSTIC IMAGING REPORT ---
MAXILLOFACIAL CT WITHOUT CONTRAST CLINICAL HISTORY: Fall with head injury. COMPARISON STUDY: None. TECHNIQUE: A maxillofacial CT was performed without IV contrast. Coronal and sagittal reformats were viewed. A dose lowering technique was utilized adhering to the principles of ALARA. FINDINGS: No acute facial fracture is identified. Alignment of the temporomandibular joints is anatomic. The globes are intact. There is no retrobulbar hematoma. There is left periorbital soft tissue swelling. IMPRESSION: No acute facial fracture. Electronically signed by: Anmol Hairston M.D. 08/23/2017 10:53 AM Dictated Date/Time: 08/23/2017 10:37 AM
[2017-08-23 10:57] LABS: BASO % 0.4 %; BASO ABS # 0.03 K/uL (0-0.2); COMPLETE YES; EOS % 2.1 %; HEMATOCRIT 42.1 % (37-47); IG% 0.7 %; LYMPH % 21.5 %; MEAN CELL VOLUME 89.6 fL (80-100); MEAN CORPUSCULAR HGB CONC 33.5 g/dl (32-36); MEAN PLATELET VOLUME 8.9 fL (7.4-10.4); MONO % 6.6 %; NEUT % 68.7 %; PLATELET COUNT 222 K/uL (130-400); WHITE BLOOD COUNT 6.99 K/uL (4.8-10.8)
--- NOTE | 2017-08-23 11:05 | DIAGNOSTIC IMAGING REPORT ---
CT OF THE CERVICAL SPINE WITHOUT CONTRAST CLINICAL HISTORY: Fall. COMPARISON STUDY: Cervical spine CT May 31, 2017. TECHNIQUE: Helical axial images of the cervical spine were obtained without IV contrast. Sagittal and coronal reconstructions were viewed. A dose lowering technique was utilized adhering to the principles of ALARA. FINDINGS: Craniocervical junction is intact. There is no acute cervical spine fracture. There is mild multilevel degenerative disc disease and severe multilevel facet arthrosis. There is no prevertebral edema. IMPRESSION: No acute cervical spine fracture or subluxation. Electronically signed by: Anmol Hairston M.D. 08/23/2017 11:04 AM Dictated Date/Time: 08/23/2017 10:55 AM
[2017-08-23 11:06] LABS: PROTHROMBIN TIME (PATIENT) 10.4 SECONDS (9.0-12.0)
[2017-08-23 11:19] LABS: BLOOD UREA NITROGEN 19 mg/dl (7-18); BUN/CREATININE RATIO 15.9 (10-20); CARBON DIOXIDE 27 mmol/L (21-32); CHLORIDE 106 mmol/L (98-107); GLUCOSE 90 mg/dl (70-99); POTASSIUM 3.9 mmol/L (3.5-5.1); SODIUM 141 mmol/L (136-145)
[2017-08-23 11:24] LABS: CKMB/CK RATIO 1.3 (0-3.0)
[2017-08-23 11:50] VITALS: BP 149/73; PULSE 74; TEMP 36.9; O2SAT 99; Ht 167.6 cm; Wt 65.6 kg
--- NOTE | 2017-08-23 12:01 | DIAGNOSTIC IMAGING REPORT ---
CHEST ONE VIEW PORTABLE HISTORY: 82 years-old Female syncope acute syncope with strokelike symptoms. COMPARISON: Chest radiograph 05/31/2017 TECHNIQUE: Portable upright AP view of the chest FINDINGS: Cardiomediastinal and hilar silhouettes are within normal limits. There is atherosclerosis of the aorta. No pneumothorax, pleural effusion, focal airspace consolidation or overt pulmonary edema. The bones of the chest appear grossly intact. There are degenerative changes of the shoulders and spine. IMPRESSION: No acute cardiopulmonary process. The above report was generated using voice recognition software. It may contain grammatical, syntax or spelling errors. Electronically signed by: Manish Al M.D. 08/23/2017 12:00 PM Dictated Date/Time: 08/23/2017 11:59 AM
[2017-08-23] MEDS ORDERED: MAGNESIUM HYDROXIDE SUSP 30 ML UDC PO PRN (12:45)
[2017-08-23] MEDS ORDERED: ONDANSETRON INJ 2 MG/ML 2 ML VIAL IV PRN (12:45)
[2017-08-23] MEDS ORDERED: ACETAMINOPHEN 325 MG TAB PO PRN (12:45)
--- NOTE | 2017-08-23 12:55 | History and Physical ---
History & Physical Date & Time of Service: Aug 23, 2017 at 12:39 Chief Complaint: Stroke Primary Care Physician: Braxton Rosado M.D. History of Present Illness Source: patient, family, spouse 82 y/o F who was brought to the ED by EMS after her called 911 for syncope and collapse. states that pt was a bit more quiet than usual this AM, but otherwise was her usual self. She had a normal day yesterday and has not had any health concerns or complaints. They did take a car trip on Saturday to see a granddaughter, which pt states "was a fun time" and feels may have fatigued her, but otherwise nothing outside of her usual routine. states pt requested to use the toilet and so he placed her on the toilet and took a shower. He had moved into the bedroom when he heard the pt suddenly call out. When he got back into the bathroom, pt was staggering away from the toilet, then fell, hitting her head against the door frame and falling to the floor. He states that her arms were shaking a bit. He called 911 at that time. Pt was able to be aroused shortly after, however he felt she was a bit more confused than usual and had some L sided weakness. At this time, and 2 sons feel that pt is at her usual mentation and level of interaction. Pt's main concern is using the toilet, which she asks for repeatedly during my exam. Denies pain to her L eye or vision changes. Pt denies fever, SOB, chest pain, abd pain, n/v/c/d, LE pain or swelling. Pt herself has no memory of the events of the morning. states that pt had a similar episode in May and had a work-up at [facility]. He states that episode was the same--pt passed out after being on the toilet for a prolonged period and had some shaking, however at that time she had bitten her tongue and had been bleeding from her mouth. She did not bite her tongue or have any bleeding with the episode this AM. states that pt is usually around 115/70 BP at baseline. Past Medical/Surgical History Medical Problems: (1) Dementia Status: Chronic (2) Esophageal Reflux Status: Chronic (3) Hyperlipidemia Nec/Nos Status: Chronic (4) Hypothyroidism Nos Status: Chronic (5) Pancreatitis Status: Resolved Family History Family history was reviewed; no changes noted. Social History Smoking Status: Never Smoker Alcohol Use: none Drug Use: none Marital Status: Housing status: lives with family Occupational Status: retired Immunizations History of Tetanus Vaccine?: Yes History of Pneumococcal: Unknown History of Hepatitis B Vaccine: Unknown Multi-Drug Resistant Organisms History of MDRO: No Allergies Coded Allergies: No Known Allergies (Verified , 08/23/17) Home Medications Scheduled Alendronate Sodium (Alendronate Sodium), 35 MG PO WK Aspirin Enteric Coated (Ecotrin Or Generic), 81 MG PO DAILY Calcium/Vitamin D (Os-Bakari 500 Plus D), 1 TAB PO QAM Cholecalciferol (Vitamin D3), 1 CAP PO DAILY Levothyroxine Sodium (Levothyroxine Sodium), 1 TAB PO DAILYBB Simvastatin (Simvastatin), 40 MG PO QPM Review of Systems Pertinent positives and negatives reviewed in HPI--all others negative Physical Exam Vital Signs Date Time Temp Pulse Resp B/P (MAP) Pulse Ox O2 Delivery O2 Flow Rate FiO2 08/23/17 12:08 96 17 98 08/23/17 12:01 119/101 08/23/17 11:53 95 15 97 08/23/17 11:50 99 Nasal Cannula 2.0 08/23/17 11:46 152/93 08/23/17 11:38 93 23 99 08/23/17 11:31 169/90 08/23/17 11:23 93 16 98 08/23/17 11:16 147/81 08/23/17 11:08 93 13 97 08/23/17 11:07 111 15 151/74 99 Nasal Cannula 2.0 08/23/17 11:01 151/74 08/23/17 10:53 97 21 97 08/23/17 10:48 101 15 93 Nasal Cannula 2.0 08/23/17 10:46 131/59 08/23/17 10:40 93 Room Air 08/23/17 10:33 108 16 91 08/23/17 10:30 104 08/23/17 10:28 92/80 08/23/17 10:15 36.9 106 19 92/80 94 Room Air General Appearance: WD/WN, no apparent distress Head: normocephalic, + pertinent finding (hematoma above L eye) Eyes: normal inspection, EOMI ENT: hearing grossly normal Neck: supple Respiratory/Chest: normal breath sounds, no respiratory distress Cardiovascular: regular rate, rhythm, no edema Abdomen/GI: non tender, soft Extremities/Musculoskelatal: no calf tenderness, no pedal edema Neurologic/Psych: alert, oriented x 3, + pertinent finding (= 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, = strength against resistance in all planes of LE 5/5) Skin: normal color (other than L eye hematoma), warm/dry Diagnostics Laboratory Results Results Past 24 Hours Test 08/23/17 10:29 08/23/17 10:30 08/23/17 10:42 Range/Units Bedside Prothrombin Time INR 1.0 0.9-1.1 Bedside Glucose 90 70-90 mg/dl White Blood Count 6.99 4.8-10.8 K/uL Red Blood Count 4.70 4.2-5.4 M/uL Hemoglobin 14.1 12.0-16.0 g/dL Hematocrit 42.1 37-47 % Mean Corpuscular Volume 89.6 80-100 fL Mean Corpuscular Hemoglobin 30.0 25-34 pg Mean Corpuscular Hemoglobin Concent 33.5 32-36 g/dl Platelet Count 222 130-400 K/uL Mean Platelet Volume 8.9 7.4-10.4 fL Neutrophils (%) (Auto) 68.7 % Lymphocytes (%) (Auto) 21.5 % Monocytes (%) (Auto) 6.6 % Eosinophils (%) (Auto) 2.1 % Basophils (%) (Auto) 0.4 % Neutrophils # (Auto) 4.80 1.4-6.5 K/uL Lymphocytes # (Auto) 1.50 1.2-3.4 K/uL Monocytes # (Auto) 0.46 0.11-0.59 K/uL Eosinophils # (Auto) 0.15 0-0.5 K/uL Basophils # (Auto) 0.03 0-0.2 K/uL RDW Standard Deviation 44.8 36.4-46.3 fL RDW Coefficient of Variation 13.6 11.5-14.5 % Immature Granulocyte % (Auto) 0.7 % Immature Granulocyte # (Auto) 0.05 0.00-0.02 K/uL Prothrombin Time 10.4 9.0-12.0 SECONDS Prothromb Time International Ratio 1.0 0.9-1.1 Activated Partial Thromboplast Time 25.9 21.0-31.0 SECONDS Partial Thromboplastin Ratio 1.0 Sodium Level 141 136-145 mmol/L Potassium Level 3.9 3.5-5.1 mmol/L Chloride Level 106 98-107 mmol/L Carbon Dioxide Level 27 21-32 mmol/L Anion Gap 8.0 3-11 mmol/L Blood Urea Nitrogen 19 7-18 mg/dl Creatinine 1.20 0.60-1.20 mg/dl Est Creatinine Clear Calc Drug Dose 36.3 ml/min Estimated GFR () 48.4 Estimated GFR (Non- 41.8 BUN/Creatinine Ratio 15.9 10-20 Random Glucose 90 70-99 mg/dl Calcium Level 10.0 8.5-10.1 mg/dl Total Creatine Kinase 219 26-192 U/L Creatine Kinase MB 2.9 0.5-3.6 ng/ml Creatine Kinase MB Ratio 1.3 0-3.0 Troponin I < 0.015 0-0.045 ng/ml Diagnostic Radiology CT head neg for acute Maxillary CT, c-spine CT neg for acute other than L sided hematoma CXR normal EKG Sinus tachy Impression Assessment and Plan 82 y/o F who was admitted for observation on 08/23 for syncope and collapse Syncope: Likely vasovagal given hx, however this is the 2nd episode of similar events in less than 6 months, potential for seizure activity however this seems less likely Pt with hypoTN on arrival to the ED, now at her usual BP per Prior admission without abnormalities on tele monitor ECHO 05/2017 with EF >70% and neg for other abnormalities, will not repeat at this time CT head WNL, will not pursue MRI at this time given low likelihood of this being a CVA EEG and cartoid dopplers not done on prior admission, however given this is 2nd syncopal episode, will check at this time CBC, PRP, trop neg CK with minor elevation s/p fall Serial trops pending TSH, B12, folate pending UA and CXR neg for infection Mild tachycardia on arrival which has resolved, monitor PT/OT pending Hypothyroid: continue home meds TSH pending Dementia: family planning to stay with pt, decline need for sitter Other: Full code per pt, however agrees SCDs for DVT proph given likely short duration of stay and large hematoma Reg diet Level of Care Telemetry Advanced Directives Existing Living Will: Yes Existing Power of Food Counter Attendant: Yes ([place]M ) Resuscitation Status FULL RESUSCITATION VTE Prophylaxis VTE Risk Assessment Done? Y/N: Yes Risk Level: Low
[2017-08-23] MEDS ORDERED: PHARMACIST DISCHARGE MED REC CONSULT PRN (13:00)
[2017-08-23 13:06] VITALS: O2SAT 96
[2017-08-23 13:20] VITALS: BP 149/73; PULSE 74; TEMP 36.9; O2SAT 96
[2017-08-23] MEDS ORDERED: IV FLUIDS COMPLETED PRN (13:30)
--- NOTE | 2017-08-23 14:21 | EMERGENCY ROOM VISIT NOTE ---
History Report prepared by Hany: Sona Clark Under the Supervision of: Jean Pierre CastilloO. First contact with patient: 10:02 Chief Complaint: STROKE SYMPTOMS Stated Complaint: STROKE Nursing Triage Summary: pt spouse states she was on the toilet, he went to nest room heard her call out then fall. she had fallen into the door and he found her face down on the floor. pt has dementia but normally can tell birthdate and looks to newspaper for the date. darcyly has no weakness or verbal or site deficets. History of Present Illness The patient is a 82 year old female who presents to the Emergency Room with complaints of constant stroke-like symptoms beginning at 0815. states that she was on the toilet this morning. He heard her call out and then fall. He found her on the ground. She had fallen into the door and appeared to have hit her head. She had blood coming from her mouth and was chewing on her tongue. The patient has dementia but is more confused than normal. The patient denies any chest pain, shortness of breath, nausea, vomiting, diarrhea, and abdominal pain. She does not have any history of stroke. The ROS is limited secondary to the patient's AMS. Source of History: patient History Limited By: AMS Onset: 0815 Position: other (global) Quality: other (stroke-like) Timing: constant Associated Symptoms: No chest pain, No SOB, No nausea, No vomiting, No abdominal pain, No diarrhea Review of Systems ROS is limited secondary to the patient's AMS. Past Medical & Surgical Medical Problems: (1) Dementia (2) Esophageal Reflux (3) Hyperlipidemia Nec/Nos (4) Hypothyroidism Nos (5) Pancreatitis (6) Pure Hypercholesterolem (7) Syncope and collapse Family History Patient reports no known family medical history. Social History Smoking Status: Never Smoker Alcohol Use: none Marital Status: Housing Status: lives with significant other Occupation Status: retired Current/Historical Medications Scheduled Alendronate Sodium (Alendronate Sodium), 35 MG PO WK Aspirin Enteric Coated (Ecotrin Or Generic), 81 MG PO DAILY Calcium/Vitamin D (Os-Bakari 500 Plus D), 1 TAB PO QAM Cholecalciferol (Vitamin D3), 1 CAP PO DAILY Levothyroxine Sodium (Levothyroxine Sodium), 1 TAB PO DAILYBB Simvastatin (Simvastatin), 40 MG PO QPM Allergies Coded Allergies: No Known Allergies (Verified , 08/23/17) Physical Exam Vital Signs Date Time Temp Pulse Resp B/P (MAP) Pulse Ox O2 Delivery O2 Flow Rate FiO2 08/23/17 12:08 96 17 98 08/23/17 12:01 119/101 08/23/17 11:53 95 15 97 08/23/17 11:50 99 Nasal Cannula 2.0 08/23/17 11:46 152/93 08/23/17 11:38 93 23 99 08/23/17 11:31 169/90 08/23/17 11:23 93 16 98 08/23/17 11:16 147/81 08/23/17 11:08 93 13 97 08/23/17 11:07 111 15 151/74 99 Nasal Cannula 2.0 08/23/17 11:01 151/74 08/23/17 10:53 97 21 97 08/23/17 10:48 101 15 93 Nasal Cannula 2.0 08/23/17 10:46 131/59 08/23/17 10:40 93 Room Air 08/23/17 10:33 108 16 91 08/23/17 10:30 104 08/23/17 10:28 92/80 08/23/17 10:15 36.9 106 19 92/80 94 Room Air Physical Exam GENERAL: alert, sitting up in stretcher, disheveled, confused, well appearing, well nourished, no distress, non-toxic HEAD: Bruise over left orbit EYE EXAM: normal conjunctiva, PERRL and EOM's intact OROPHARYNX: no exudate, no erythema, lips, buccal mucosa, and tongue normal and mucous membranes are moist NECK: supple, no nuchal rigidity, no adenopathy, non-tender LUNGS: Clear to auscultation. Normal chest wall mechanics HEART: no murmurs, S1 normal and S2 normal ABDOMEN: abdomen soft, non-tender, normo-active bowel sounds, no masses, no rebound or guarding. BACK: Back is symmetrical on inspection and there is no deformity, no midline tenderness, no CVA tenderness. SKIN: no rashes and no bruising UPPER EXTREMITIES: upper extremities are grossly normal. LOWER EXTREMITIES: No pitting edema. NEURO EXAM: Awake, alert, oriented to person, following commands. Left upper extremity is weak with grasp, flexion/extension at elbow. No weakness in lower extremities. Drift with the left upper extremity. Medical Decision & Procedures ER Provider Diagnostic Interpretation: Radiology results as stated below per my review and the radiologist's interpretation: HEAD WITHOUT CONTRAST (CT) CLINICAL HISTORY: 82 years-old Female with Stroke. Acute strokelike symptoms status post fall TECHNIQUE: Multiple axial CT images of the head were obtained without contrast. A dose lowering technique was utilized adhering to the principles of ALARA. CT DOSE: 537.48 mGy.cm COMPARISON: CT head 05/31/2017. FINDINGS: No acute intracranial hemorrhage, midline shift, mass, large territorial ischemia or abnormal extra-axial collection. Moderate atrophy. Extensive background chronic microvascular ischemic changes. The calvarium is intact. The paranasal sinuses, mastoid air cells, and middle ear cavities are clear. Right temporal scalp hematoma measures 4.0 x 0.7 cm. Mild left periorbital soft tissue swelling also noted. IMPRESSION: 1. No acute intracranial abnormality. 2. 4.0 cm right scalp hematoma with mild left periorbital soft tissue swelling. No calvarial fracture. The above report was generated using voice recognition software. It may contain grammatical, syntax or spelling errors. Electronically signed by: Manish Al M.D. 08/23/2017 10:31 AM Dictated Date/Time: 08/23/2017 10:[address] WITHOUT CONTRAST CLINICAL HISTORY: Fall with head injury. COMPARISON STUDY: None. TECHNIQUE: A maxillofacial CT was performed without IV contrast. Coronal and sagittal reformats were viewed. A dose lowering technique was utilized adhering to the principles of ALARA. FINDINGS: No acute facial fracture is identified. Alignment of the temporomandibular joints is anatomic. The globes are intact. There is no retrobulbar hematoma. There is left periorbital soft tissue swelling. IMPRESSION: No acute facial fracture. Electronically signed by: Anmol Hairston M.D. 08/23/2017 10:53 AM Dictated Date/Time: 08/23/2017 10:[address] OF THE CERVICAL SPINE WITHOUT CONTRAST CLINICAL HISTORY: Fall. COMPARISON STUDY: Cervical spine CT May 31, 2017. TECHNIQUE: Helical axial images of the cervical spine were obtained without IV contrast. Sagittal and coronal reconstructions were viewed. A dose lowering technique was utilized adhering to the principles of ALARA. FINDINGS: Craniocervical junction is intact. There is no acute cervical spine fracture. There is mild multilevel degenerative disc disease and severe multilevel facet arthrosis. There is no prevertebral edema. IMPRESSION: No acute cervical spine fracture or subluxation. Electronically signed by: Anmol Hairston M.D. 08/23/2017 11:04 AM Dictated Date/Time: 08/23/2017 10:55 AM CHEST ONE VIEW PORTABLE HISTORY: 82 years-old Female syncope acute syncope with strokelike symptoms. COMPARISON: Chest radiograph 05/31/2017 TECHNIQUE: Portable upright AP view of the chest FINDINGS: Cardiomediastinal and hilar silhouettes are within normal limits. There is atherosclerosis of the aorta. No pneumothorax, pleural effusion, focal airspace consolidation or overt pulmonary edema. The bones of the chest appear grossly intact. There are degenerative changes of the shoulders and spine. IMPRESSION: No acute cardiopulmonary process. The above report was generated using voice recognition software. It may contain grammatical, syntax or spelling errors. Electronically signed by: Manish Al M.D. 08/23/2017 12:00 PM Dictated Date/Time: 08/23/2017 11:59 AM Laboratory Results 08/23/17 10:42 Red Blood Count 4.70, Mean Corpuscular Volume 89.6, Mean Corpuscular Hemoglobin 30.0, Mean Corpuscular Hemoglobin Concent 33.5, Mean Platelet Volume 8.9, Neutrophils (%) (Auto) 68.7, Lymphocytes (%) (Auto) 21.5, Monocytes (%) (Auto) 6.6, Eosinophils (%) (Auto) 2.1, Basophils (%) (Auto) 0.4, Neutrophils # (Auto) 4.80, Lymphocytes # (Auto) 1.50, Monocytes # (Auto) 0.46, Eosinophils # (Auto) 0.15, Basophils # (Auto) 0.03 08/23/17 10:42 Test 08/23/17 10:29 08/23/17 10:30 08/23/17 10:42 Bedside Prothrombin Time INR 1.0 (0.9-1.1) Bedside Glucose 90 mg/dl (70-90) White Blood Count 6.99 K/uL (4.8-10.8) Red Blood Count 4.70 M/uL (4.2-5.4) Hemoglobin 14.1 g/dL (12.0-16.0) Hematocrit 42.1 % (37-47) Mean Corpuscular Volume 89.6 fL (80-100) Mean Corpuscular Hemoglobin 30.0 pg (25-34) Mean Corpuscular Hemoglobin Concent 33.5 g/dl (32-36) Platelet Count 222 K/uL (130-400) Mean Platelet Volume 8.9 fL (7.4-10.4) Neutrophils (%) (Auto) 68.7 % Lymphocytes (%) (Auto) 21.5 % Monocytes (%) (Auto) 6.6 % Eosinophils (%) (Auto) 2.1 % Basophils (%) (Auto) 0.4 % Neutrophils # (Auto) 4.80 K/uL (1.4-6.5) Lymphocytes # (Auto) 1.50 K/uL (1.2-3.4) Monocytes # (Auto) 0.46 K/uL (0.11-0.59) Eosinophils # (Auto) 0.15 K/uL (0-0.5) Basophils # (Auto) 0.03 K/uL (0-0.2) RDW Standard Deviation 44.8 fL (36.4-46.3) RDW Coefficient of Variation 13.6 % (11.5-14.5) Immature Granulocyte % (Auto) 0.7 % Immature Granulocyte # (Auto) 0.05 K/uL (0.00-0.02) Prothrombin Time 10.4 SECONDS (9.0-12.0) Prothromb Time International Ratio 1.0 (0.9-1.1) Activated Partial Thromboplast Time 25.9 SECONDS (21.0-31.0) Partial Thromboplastin Ratio 1.0 Anion Gap 8.0 mmol/L (3-11) Est Creatinine Clear Calc Drug Dose 36.3 ml/min Estimated GFR () 48.4 Estimated GFR (Non- 41.8 BUN/Creatinine Ratio 15.9 (10-20) Estimated Average Glucose 117 mg/dl Hemoglobin A1c 5.7 % (4.5-5.6) Calcium Level 10.0 mg/dl (8.5-10.1) Total Creatine Kinase 219 U/L (26-192) Creatine Kinase MB 2.9 ng/ml (0.5-3.6) Creatine Kinase MB Ratio 1.3 (0-3.0) Troponin I < 0.015 ng/ml (0-0.045) Laboratory results per my review. Medications Administered Medications (Trade) Dose Ordered Sig/Minerva Route Start Time Stop Time Status Last Admin Dose Admin Sodium Chloride 1,000 ml @ 50 mls/hr Q20H IV 08/23/17 10:02 08/23/17 13:55 DC 08/23/17 10:56 50 MLS/HR Sodium Chloride 1,000 ml @ 999 mls/hr Q1H1M STAT IV 08/23/17 10:48 08/23/17 11:48 DC 08/23/17 10:56 999 MLS/HR Sodium Chloride 500 ml @ 999 mls/hr Q31M STAT IV 08/23/17 10:48 08/23/17 11:18 DC 08/23/17 10:48 999 MLS/HR ECG Indication: altered mental status Rate (beats per minute): 101 Rhythm: sinus tachycardia Findings: Q waves (Septal), other (normal axis; interventricular conduction delay) Comparison ECG Date: 05/31/17 Change: no significant change ED Course ED COURSE: Vital signs were reviewed and showed hypotensive, tachycardic. The patients medical record was reviewed The above diagnostic studies were performed and reviewed. ED treatments and interventions as stated above. ' 0950: I took medical command prior to the patient's arrival in the ED. A stroke alert was called. 1002: NSS 1000 ml @ 50 mls/hr IV 1010: The patient was evaluated in room B1. A complete history and physical examination was performed. She was taken to CT scan. 1035: I reassessed the patient and updated her and her family on the results. 1036: I discussed the case with Dr. Morris of neurology at [facility]. He will evaluate the patient via Tele-Stroke for further management. 1048: NSS 500 ml @ 999 mls/hr IV, NSS 1000 ml @ 999 mls/hr IV 1137: I updated the patient and the family. 1152: I discussed the patient's case with Dr. Morris. The patient is not a TPA candidate. He recommended admission for further cardiac work-up. 1154: Upon reevaluation, the patient is resting comfortably. I discussed my findings with the patient and her family and they understand and agree with the treatment plan. Based on the patients age, coexisting illnesses, exam and lab findings the decision to treat as an inpatient was made. The patient remained stable while under my care. The patient will be evaluated for further management. 1202: I reviewed the patient's case with Dr. Jarrett. The [facility] will evaluate the patient for further management. Medical Decision Differential Diagnosis includes but is not limited to ischemic Stroke, hemorrhagic stroke, bells palsy, mass, neoplasm, migraine headache, seizure, subarachnoid hemorrhage, TIA, and transient global amnesia. Patient is an 82-year-old female who passed out at her house was found down in the bathroom. This happened back in May. Showed alert was called as I received medical command report was patient had weakness in left upper extremity. Symptoms all started within a half hour prior to arrival. On exam initially she was confused and hypotensive. Fluids were given and she was taken immediately to CT scanner. CBC all BMP and troponin were unremarkable. INR was normal. CT head, face and cervical spine were unremarkable. Patient was evaluated by her she stroke neurology. Systolic blood pressure improved. Recommend admission without TPA as I agreed with her presentation and history of dementia. Family was updated bedside. Discussed with internal medicine. Medication Reconcilliation Current Medication List: was personally reviewed by me Blood Pressure Screening Patient's blood pressure: Low blood pressure Consults Time Called: 1032 Consulting Physician: Dr. Morris Returned Call: 1036 I discussed the case with Dr. Morris of neurology at [facility]. He will evaluate the patient via Tele-Stroke for further management. Additional Consults: Time Called: 1152 Consulted Physician: Dr. Morris Returned Call: 1152 Additional Comments: I discussed the patient's case with Dr. Morris. The patient is not a TPA candidate. He recommended admission for further cardiac work-up. Time Called: 1159 Consulted Physician: Dr. Jarrett Returned Call: 1202 Additional Comments: I reviewed the patient's case with Dr. Jarrett. The [facility] will evaluate the patient for further management. Impression Primary Impression: Syncope Additional Impressions: Contusion of face TIA (transient ischemic attack) Scribe Attestation The scribe's documentation has been prepared under my direction and personally reviewed by me in its entirety. I confirm that the note above accurately reflects all work, treatment, procedures, and medical decision making performed by me. Departure Information Dispostion Being Evaluated By Hospitalist Braxton Aguero M.D. (PCP) Patient Instructions My [facility] Stroke History Time Last Known Well 814 Stroke t-PA Criteria Reviewed Does NOT meet criteria for t-PA Reason t-PA Not Given Treatment not indicated Problem Qualifiers Primary Impression: Syncope Syncope type: unspecified Qualified Codes: R55 - Syncope and collapse Additional Impressions: Contusion of face Encounter type: initial encounter Qualified Codes: S00.83XA - Contusion of other part of head, initial encounter TIA (transient ischemic attack) Transient cerebral ischemia type: unspecified Qualified Codes: G45.9 - Transient cerebral ischemic attack, unspecified
[2017-08-23 15:07] VITALS: BP 110/66; PULSE 102; TEMP 37; O2SAT 95
[2017-08-23 20:59] VITALS: BP 140/74; PULSE 78; TEMP 36.4; O2SAT 97
[2017-08-23] MEDS ORDERED: SIMVASTATIN 40 MG TAB PO SCH (21:00)
--- NOTE | 2017-08-23 21:17 | DIAGNOSTIC IMAGING REPORT ---
CAROTID DOPPLER NECK ART CLINICAL HISTORY: 82 years-old Female presenting with syncope, stroke. TECHNIQUE: Real-time grayscale and color and spectral Doppler ultrasound imaging of the bilateral carotid arteries was performed. NASCET criteria was used in evaluating this study. COMPARISON: None. FINDINGS: Right: Common carotid: Patent. Peak systolic velocity 72 cm/s. Internal carotid artery: Atherosclerosis at the proximal ICA. Peak systolic velocity 105 cm/s. External carotid artery: Patent. Peak systolic velocity 100 cm/s. Systolic ratio: 1.45. Left: Common carotid: Patent. Peak systolic velocity 72 cm/s. Internal carotid artery: Atherosclerosis of the proximal ICA. Peak systolic velocity 76 cm/s. External carotid artery: Patent. Peak systolic velocity 90 cm/s. Systolic ratio: 1.05. Bilateral antegrade flow within the vertebral arteries. Reference ranges: Stenosis measurements are compared to reference velocity parameters. Normal ICA peak systolic velocity less than 125 cm/s. Normal ICA peak systolic velocity to common carotid artery velocity ratio is less than 2: less than 2 equates to less than 50% stenosis, 2-4 equates to 50-69% stenosis, greater than 4 equates to greater than or equal to 70% stenosis. Normal ICA end-diastolic velocity less than 40. Blood pressure Right: 130/70 mmHg; left: 135/75 mmHg IMPRESSION: Atherosclerosis of the bilateral proximal ICAs without hemodynamically significant stenosis seen within the carotid arteries. Electronically signed by: Braxton Ruiz M.D. 08/23/2017 9:16 PM Dictated Date/Time: 08/23/2017 9:13 PM
[2017-08-24 00:42] VITALS: BP 156/96; PULSE 92; TEMP 37.1; O2SAT 93
[2017-08-24 03:27] VITALS: BP 146/66; PULSE 96; TEMP 37.2; O2SAT 93
[2017-08-24] MEDS ORDERED: LEVOTHYROXINE 88 MCG TAB PO SCH (06:00)
[2017-08-24 06:04] LABS: BASO % 0.2 %; BASO ABS # 0.02 K/uL (0-0.2); COMPLETE YES; EOS % 1.2 %; HEMATOCRIT 38.5 % (37-47); IG% 0.3 %; LYMPH % 19.8 %; LYMPH ABS # 1.92 K/uL (1.2-3.4); MEAN CELL VOLUME 89.5 fL (80-100); MEAN CORPUSCULAR HEMOGLOBIN 29.5 pg (25-34); MEAN PLATELET VOLUME 9.2 fL (7.4-10.4); MONO % 6.6 %; NEUT % 71.9 %; PLATELET COUNT 220 K/uL (130-400); WHITE BLOOD COUNT 9.71 K/uL (4.8-10.8)
[2017-08-24 06:33] LABS: BUN/CREATININE RATIO 18.5 (10-20); CALCIUM 8.7 mg/dl (8.5-10.1); POTASSIUM 3.5 mmol/L (3.5-5.1)
[2017-08-24 06:36] LABS: CHOLESTEROL/HDL RATIO 1.8
[2017-08-24 08:00] VITALS: BP 139/63; PULSE 92; TEMP 36.9; O2SAT 92
[2017-08-24] MEDS ORDERED: CALCIUM 600MG + VIT D 400 IU TAB PO SCH (09:00)
[2017-08-24] MEDS ORDERED: CHOLECALCIFEROL 1000 INTER.UNIT TAB PO SCH ×2 (09:00)
[2017-08-24] MEDS ORDERED: ASPIRIN 81 MG ECTAB PO SCH (09:00)
--- NOTE | 2017-08-24 10:17 | Cardiology Consultation ---
Cardiology Consultation Date of Consultation: Aug 24, 2017. Requesting Physician: Jaylin Reason for Consultation: syncope History of Present Illness The patient is an 82-year-old woman with history of dementia who suffered a fall yesterday at her residence. The patient is communicative but could not provide any history. The interview was performed with the assistance of her son and who provided the history. Her was present during this episode yesterday. It seems that the patient had been up most of the evening and did not sleep well the night prior. She apparently was in the bathroom urinating and later stood up at the sink. He was at this point that she cried out for her who into the bathroom and found her on the floor. She was face down but responsive. He called her name and she answered. He left her briefly to call 911 prior to returning. He does not believe that she was unconscious for any period of time. He reports this episode being similar to what she experienced in May of this year. That episode also occurred in the bathroom and resulted in a minor injury to her tongue and face. The patient was brought to [facility] for an evaluation. She is found to have a mild contusion to the left orbital area. The time of presentation there were no other significant findings. According to the and the patient's son she is generally an active individual. She occasionally verbalizes some complaints of indigestion. This generally occurs with eating and responds to some [place] water. She has not had any prolonged episodes of this nature. She has not been complaining of dizziness. She apparently has a good appetite has been eating well. She has not had recent constitutional symptoms such as fevers or chills. She will occasionally have some degree of constipation but they cannot say if this is been true recently. She has not had any abdominal complaints. She has not experienced any nausea or vomiting recently. Past Medical/Surgical History Dementia History of vertigo Esophageal stricture Hyperlipidemia Hypothyroidism Spinal stenosis Zenker's diverticulum Gastroesophageal reflux disease Surgical history Foot surgery Knee surgery Wrist surgery Family History Patient reports no known family medical history. Noncontributory Social History Smoking Status: Never Smoker History of Alcohol Use: No Currently lives with her independently Review of Systems Per HPI. Additional review of systems cannot be obtained from the patient given her dementia All Other Systems: Reviewed and Negative Allergies Coded Allergies: No Known Allergies (Verified , 08/23/17) Medications Current Inpatient Medications Medications (Trade) Dose Ordered Sig/Minerva Route Start Time Stop Time Status Last Admin Dose Admin Acetaminophen (Tylenol Tab) 650 mg Q4H PRN PO 08/23/17 12:45 09/22/17 12:44 Magnesium Hydroxide (Milk Of Magnesia Susp) 30 ml Q12H PRN PO 08/23/17 12:45 09/22/17 12:44 Ondansetron HCl (Zofran Inj) 4 mg Q6H PRN IV 08/23/17 12:45 09/22/17 12:44 Aspirin (Ecotrin Tab) 81 mg DAILY PO 08/24/17 09:00 09/23/17 08:59 08/24/17 07:55 81 MG Calcium/Vitamin D (Caltrate Plus Tab) 1 tab QAM PO 08/24/17 09:00 09/23/17 08:59 08/24/17 07:55 1 TAB Levothyroxine Sodium (Synthroid Tab) 88 mcg DAILYBB PO 08/24/17 06:00 09/23/17 06:59 08/24/17 07:55 88 MCG Simvastatin (Zocor Tab) 40 mg QPM PO 08/23/17 21:00 09/22/17 20:59 08/23/17 20:57 40 MG Miscellaneous Information (Pharmacist Discharge Med Rec Consult) 1 ea UD PRN N/A 08/23/17 13:00 09/22/17 12:59 Miscellaneous (Iv Fluids Completed) 1 ea PRN PRN N/A 08/23/17 13:30 08/23/18 13:29 Cholecalciferol (Vitamin D Tab) 1,000 inter.unit DAILY PO 08/24/17 09:00 09/23/17 08:59 08/24/17 07:56 1,000 INTER.UNIT Physical Exam Vital Signs Past 12 Hours Date Time Temp Pulse Resp B/P (MAP) Pulse Ox O2 Delivery O2 Flow Rate FiO2 08/24/17 08:00 36.9 92 18 139/63 (88) 92 Room Air 08/24/17 04:00 Room Air 08/24/17 03:27 37.2 96 18 146/66 (92) 93 Room Air 08/24/17 00:42 37.1 92 18 156/96 (116) 93 Room Air 08/23/17 23:59 Room Air She is alert and response to her and son. Not oriented to place. Mood affect appear normal. HEENT: Sclerae are anicteric. Pupils are equal and reactive to light and accommodation. Extraocular movements were intact. Ecchymosis along the border of the left orbit Neuro: Cranial nerves intact Neck: Examination of the submandibular region did not reveal any significant lymphadenopathy. Carotids are palpable bilaterally and free of bruits on auscultation. There was no evidence of jugular venous distention. The thyroid was not enlarged. Lungs: Lungs are clear to auscultation bilaterally. There are no rales wheezes or rhonchi. She has normal respiratory effort without use of accessory muscles. There is normal pulmonary excursion. Cardiac: The rhythm was regular. S1 and S2 were normal. There are no murmurs on examination. The PMI was not markedly displaced on palpation. Abdomen: The abdomen was soft and nontender. Extremities: Patient has bilateral radial pulses that are equal in intensity. There is no evidence cyanosis or clubbing. There was no evidence of significant peripheral edema bilaterally. Skin: There are no rashes noted on examination today. Data Laboratory Results: Last 24 Hours Test 08/23/17 10:29 08/23/17 10:30 08/23/17 10:42 08/23/17 14:47 Bedside Prothrombin Time INR 1.0 Bedside Glucose 90 mg/dl White Blood Count 6.99 K/uL Red Blood Count 4.70 M/uL Hemoglobin 14.1 g/dL Hematocrit 42.1 % Mean Corpuscular Volume 89.6 fL Mean Corpuscular Hemoglobin 30.0 pg Mean Corpuscular Hemoglobin Concent 33.5 g/dl Platelet Count 222 K/uL Mean Platelet Volume 8.9 fL Neutrophils (%) (Auto) 68.7 % Lymphocytes (%) (Auto) 21.5 % Monocytes (%) (Auto) 6.6 % Eosinophils (%) (Auto) 2.1 % Basophils (%) (Auto) 0.4 % Neutrophils # (Auto) 4.80 K/uL Lymphocytes # (Auto) 1.50 K/uL Monocytes # (Auto) 0.46 K/uL Eosinophils # (Auto) 0.15 K/uL Basophils # (Auto) 0.03 K/uL RDW Standard Deviation 44.8 fL RDW Coefficient of Variation 13.6 % Immature Granulocyte % (Auto) 0.7 % Immature Granulocyte # (Auto) 0.05 K/uL Prothrombin Time 10.4 SECONDS Prothromb Time International Ratio 1.0 Activated Partial Thromboplast Time 25.9 SECONDS Partial Thromboplastin Ratio 1.0 Sodium Level 141 mmol/L Potassium Level 3.9 mmol/L Chloride Level 106 mmol/L Carbon Dioxide Level 27 mmol/L Anion Gap 8.0 mmol/L Blood Urea Nitrogen 19 mg/dl Creatinine 1.20 mg/dl Est Creatinine Clear Calc Drug Dose 36.3 ml/min Estimated GFR () 48.4 Estimated GFR (Non- 41.8 BUN/Creatinine Ratio 15.9 Random Glucose 90 mg/dl Estimated Average Glucose 117 mg/dl Hemoglobin A1c 5.7 % Calcium Level 10.0 mg/dl Total Creatine Kinase 219 U/L Creatine Kinase MB 2.9 ng/ml Creatine Kinase MB Ratio 1.3 Troponin I < 0.015 ng/ml Vitamin B12 Level 679 pg/mL Folate 21.60 ng/mL Thyroid Stimulating Hormone (TSH) 0.873 uIu/ml Test 08/23/17 16:53 08/23/17 22:57 08/24/17 05:37 Troponin I < 0.015 ng/ml < 0.015 ng/ml White Blood Count 9.71 K/uL Red Blood Count 4.30 M/uL Hemoglobin 12.7 g/dL Hematocrit 38.5 % Mean Corpuscular Volume 89.5 fL Mean Corpuscular Hemoglobin 29.5 pg Mean Corpuscular Hemoglobin Concent 33.0 g/dl Platelet Count 220 K/uL Mean Platelet Volume 9.2 fL Neutrophils (%) (Auto) 71.9 % Lymphocytes (%) (Auto) 19.8 % Monocytes (%) (Auto) 6.6 % Eosinophils (%) (Auto) 1.2 % Basophils (%) (Auto) 0.2 % Neutrophils # (Auto) 6.98 K/uL Lymphocytes # (Auto) 1.92 K/uL Monocytes # (Auto) 0.64 K/uL Eosinophils # (Auto) 0.12 K/uL Basophils # (Auto) 0.02 K/uL RDW Standard Deviation 45.6 fL RDW Coefficient of Variation 13.9 % Immature Granulocyte % (Auto) 0.3 % Immature Granulocyte # (Auto) 0.03 K/uL Sodium Level 139 mmol/L Potassium Level 3.5 mmol/L Chloride Level 107 mmol/L Carbon Dioxide Level 24 mmol/L Anion Gap 8.0 mmol/L Blood Urea Nitrogen 19 mg/dl Creatinine 1.00 mg/dl Est Creatinine Clear Calc Drug Dose 43.5 ml/min Estimated GFR () 60.3 Estimated GFR (Non- 52.1 BUN/Creatinine Ratio 18.5 Random Glucose 100 mg/dl Calcium Level 8.7 mg/dl Triglycerides Level 91 mg/dl Cholesterol Level 126 mg/dl HDL Cholesterol 71 mg/dl LDL Cholesterol, Calculated 37 mg/dl VLDL Cholesterol, Calculated 18 mg/dl Cholesterol/HDL Ratio 1.8 Imaging: Carotid duplex did not reveal any significant stenosis. Head and maxillofacial CT did not reveal any fracture. Chest x-ray did not reveal any acute cardiopulmonary process. EKG: Normal sinus rhythm. Unchanged from prior. Telemetry reviewed: No arrhythmias. Echocardiogram performed May 2017 revealed preserved LV systolic function. Overall image quality was poor but there were no valvular lesions identified. Assessment & Plan 1. Syncope: Unclear the patient actually lost consciousness during this most recent episode. It seems she was noted to be responsive at all times. That may have been a brief loss of consciousness it was not witnessed. I suspect the mechanism of this event was similar to the 1 which occurred in May of this year. At that time was felt to be related to orthostasis and probably increased vagal tone. She has preserved LV systolic function on her echocardiogram and abnormal EKG. This episode was likely mechanical in nature. May be related to transiently low blood pressure or bradycardia with increased vagal tone subsequent to urination. There was some concern on the family's part regarding an element of mild dehydration over the preceding day, this may have contributed to this event. This would be a common scenario for such an event. I had a discussion with the family regarding monitoring and the risk of recurrence. This point they feel as though they can supervise her well. In the absence of any concern over a more malignant diagnosis they are happy simply to return her home at this time. I think that is reasonable. Given the infrequent and currently rare nature of these events, monitoring would need to involve several months at a time. This could only be accomplished with an implantable loop recorder which we will defer currently.
--- NOTE | 2017-08-24 10:59 | Discharge Instructions ---
Discharge Instructions Date of Service Aug 24, 2017. Admission Reason for Admission: Fall, near syncope Discharge Discharge Diagnosis / Problem: Fall, near syncope Discharge Goals Goal(s): Improve disease control, Diagnostic testing, Therapeutic intervention Activity Recommendations Activity Limitations: resume your previous activity Exercise/Sports Limitations: as tolerated . Instructions / Follow-Up Instructions / Follow-Up You were admitted for a fall in the bathroom that was likely caused by low blood pressure and mild dehydration. You were much improved overnight after receiving IV fluids. The Independent Jeweler evaluated you and did not think you needed any further cardiac workup. Please try to stay hydrated by drinking plenty of fluids throughout the day. Please resume care with your daytime looseleaf binder coverer and outpatient PT. Please follow up with your PCP within 1-2 weeks. Current Hospital Diet Patient's current hospital diet: Regular Diet Discharge Diet Recommended Diet: Regular Diet Procedures Procedures Performed: Carotid Ultrasound Chest xray Head CT Maxillofacial CT CT Cervical spine Pending Studies Studies pending at discharge: no Laboratory Results Hemoglobin A1c Test 08/23/17 10:42 Range/Units Estimated Average Glucose 117 mg/dl Hemoglobin A1c 5.7 H 4.5-5.6 % Lipid Panel Test 08/24/17 05:37 Range/Units Triglycerides Level 91 0-150 mg/dl Cholesterol Level 126 0-200 mg/dl HDL Cholesterol 71 mg/dl Cholesterol/HDL Ratio 1.8 LDL Cholesterol, Calculated 37 mg/dl Medical Emergencies . Who to Call and When: Medical Emergencies: If at any time you feel your situation is an emergency, please call 911 immediately. . Non-Emergent Contact Non-Emergency issues call your: Primary Care Provider Call Non-Emergent contact if: your pain is not controlled, your pain is worsening, your pain is unusual for you, your pain is concerning you, you have any medication questions you continue to feel lightheaded . . "Provider Documentation" section prepared by Cece Mosqueda. . VTE Core Measure Inpt VTE Proph given/why not?: SCD's
--- NOTE | 2017-08-24 11:07 | Discharge Summary ---
Discharge Summary Date of Service Aug 24, 2017. Discharge Summary Admission Date: Aug 23, 2017 at 12:35 Discharge Date: Aug 24, 2017 Discharge Disposition: Home Principal Diagnosis: Fall, near syncope, hypotension Problems/Secondary Diagnoses: 82 y/o F who was brought to the ED by EMS after her called 911 for syncope and collapse. states that pt was a bit more quiet than usual this AM, but otherwise was her usual self. She had a normal day yesterday and has not had any health concerns or complaints. They did take a car trip on Saturday to see a granddaughter, which pt states "was a fun time" and feels may have fatigued her, but otherwise nothing outside of her usual routine. states pt requested to use the toilet and so he placed her on the toilet and took a shower. He had moved into the bedroom when he heard the pt suddenly call out. When he got back into the bathroom, pt was staggering away from the toilet, then fell, hitting her head against the door frame and falling to the floor. He states that her arms were shaking a bit. He called 911 at that time. Pt was able to be aroused shortly after, however he felt she was a bit more confused than usual and had some L sided weakness. At this time, and 2 sons feel that pt is at her usual mentation and level of interaction. Pt's main concern is using the toilet, which she asks for repeatedly during my exam. Denies pain to her L eye or vision changes. Pt denies fever, SOB, chest pain, abd pain, n/v/c/d, LE pain or swelling. Pt herself has no memory of the events of the morning. states that pt had a similar episode in May and had a work-up at [facility]. He states that episode was the same--pt passed out after being on the toilet for a prolonged period and had some shaking, however at that time she had bitten her tongue and had been bleeding from her mouth. She did not bite her tongue or have any bleeding with the episode this AM. states that pt is usually around 115/70 BP at baseline. 82 y/o F who was admitted for observation on 08/23 for syncope and collapse Syncope: Likely vasovagal given hx, however this is the 2nd episode of similar events in less than 6 months, potential for seizure activity however this seems less likely Pt with hypoTN on arrival to the ED, now at her usual BP per Prior admission without abnormalities on tele monitor ECHO 05/2017 with EF >70% and neg for other abnormalities, will not repeat at this time CT head WNL, will not pursue MRI at this time given low likelihood of this being a CVA EEG and cartoid dopplers not done on prior admission, however given this is 2nd syncopal episode, will check at this time CBC, PRP, trop neg CK with minor elevation s/p fall Serial trops pending TSH, B12, folate pending UA and CXR neg for infection Mild tachycardia on arrival which has resolved, monitor PT/OT pending Hypothyroid: continue home meds TSH pending Dementia: family planning to stay with pt, decline need for sitter Other: Full code per pt, however agrees SCDs for DVT proph given likely short duration of stay and large hematoma Reg diet Immunizations: History of Tetanus Vaccine?: Yes History of Pneumococcal: Unknown History of Hepatitis B Vaccine: Unknown Procedures: Carotid Ultrasound Chest xray Head CT Maxillofacial CT CT Cervical spine Consultations: Cardiology Medication Reconciliation Continued Medications: Alendronate Sodium (Alendronate Sodium) 35 Mg Tab 35 MG PO WK Aspirin Enteric Coated (Ecotrin Or Generic) 81 Mg Tab 81 MG PO DAILY, TAB Calcium/Vitamin D (Os-Bakari 500 Plus D) Tab 1 TAB PO QAM, TAB Cholecalciferol (Vitamin D3) 2,000 Unit Cap 1 CAP PO DAILY, CAP Levothyroxine Sodium (Levothyroxine Sodium) 88 Mcg Tab 1 TAB PO DAILYBB Simvastatin (Simvastatin) 40 Mg Tab 40 MG PO QPM Discharge Exam Pt has no complaints but is confused at baseline, knows she is in [employer] and her name but otherwise disoriented at baseline as per family at bedside. Review of Systems: Constitutional: No fever, No chills Eyes: No problem reported ENT: No problem reported Respiratory: No problem reported Cardiovascular: No problem reported Abdomen: No problem reported Musculoskeletal: No problem reported Genitourinary - Female: No problem reported Neurologic: + memory loss Psychiatric: No problem reported Hematologic / Lymphatic: No problem reported Integumentary: No problem reported Physical Exam: General Appearance: WD/WN, no apparent distress Eyes: + pertinent finding (small left periorbital lateral ecchymosis, EOMI) ENT: hearing grossly normal, pharynx normal Neck: supple, trachea midline Respiratory/Chest: lungs clear, normal breath sounds, no respiratory distress, no accessory muscle use Cardiovascular: regular rate, rhythm, no edema, no gallop, no murmur Abdomen / GI: normal bowel sounds, non tender, soft, no organomegaly, no pulsatile mass Extremities: normal inspection, no calf tenderness, normal capillary refill , no pedal edema, normal range of motion Neurologic/Psychiatric: no motor/sensory deficits, alert, normal mood/affect , + disoriented Skin: normal color, warm/dry, no rash Hospital Course 82 y/o F who was brought to the ED by EMS after her called 911 for syncope and collapse. states that pt was a bit more quiet than usual this AM, but otherwise was her usual self. She had a normal day yesterday and has not had any health concerns or complaints. They did take a car trip on Saturday to see a granddaughter, which pt states "was a fun time" and feels may have fatigued her, but otherwise nothing outside of her usual routine. states pt requested to use the toilet and so he placed her on the toilet and took a shower. He had moved into the bedroom when he heard the pt suddenly call out. When he got back into the bathroom, pt was staggering away from the toilet, then fell, hitting her head against the door frame and falling to the floor. He states that her arms were shaking a bit. He called 911 at that time. Pt was able to be aroused shortly after, however he felt she was a bit more confused than usual and had some possible L sided weakness. Pt denies fever, SOB, chest pain, abd pain, n/v/c/d, LE pain or swelling. Pt herself has no memory of the events of the morning of admission. states that pt had a similar episode in May and had a work-up at [facility]. He states that episode was the same--pt passed out after being on the toilet for a prolonged period and had some shaking, however at that time she had bitten her tongue and had been bleeding from her mouth. She did not bite her tongue or have any bleeding with the episode this AM. states that pt is usually around 115/70 BP at baseline. 82 y/o F who was admitted for observation on 08/23 for syncope and collapse. No events on tele overnight, discussed with Cardiology who did not feel any further cardiac evaluation was necessary. Could consider loop recorder but family declined, felt very comfortable taking her home. All labs acceptable. Encouraged family to provide po fluids to avoid dehydration and lightheadedness given low normal BPs at baseline. No motor weakness at all. Did not actually lose consciousness. CVA not likely at all. Syncope: Likely vasovagal given hx, however this is the 2nd episode of similar events in less than 6 months, potential for seizure activity however this seems less likely Pt with hypoTN on arrival to the ED, normalized after admission with IVFs ECHO 05/2017 with EF >70% and neg for other abnormalities, did not repeat at this time CT head WNL, will not pursue MRI at this time given low likelihood of this being a CVA Cartoid dopplers negative CBC, PRP, trop neg CK with minor elevation s/p fall Serial trops negative TSH, B12, folate all normal UA and CXR neg for infection Mild tachycardia on arrival which has resolved, monitor Family declines PT/OT services Hypothyroid: continue home meds TSH normal Dementia: supportive care Other: Full code per pt, however agrees SCDs for DVT proph given likely short duration of stay and large hematoma Reg diet Total Time Spent: Greater than 30 minutes This includes examination of the patient, discharge planning, medication reconciliation, and communication with other providers. Discharge Instructions Please refer to the electronic Patient Visit Report (Discharge Instructions) for additional information. Follow-Up PCP within 1-2 weeks Additional Copies To Braxton Rosado M.D.
[2017-08-24 11:45] VITALS: BP_SYST 124; BP_SYST 142; BP_DIAS 65; BP_DIAS 76; PULSE 71; PULSE 89; TEMP 36.4; TEMP 37; O2SAT 93; O2SAT 97
== END 2017-08-24 12:29 | disposition home or self-care (01) ==
LOC: EDBD 10:03 → C.EDB 10:04 → C.2T 12:35 → ENRESERV 12:57 → C.2E 18:51
PROVIDERS: ADMIT Family Medicine; ATTEND Family Medicine
DX: R55 Syncope and collapse (principal); S00.83XA Contusion of other part of head, initial encounter; W19.XXXA Unspecified fall, initial encounter; E03.9 Hypothyroidism, unspecified; F03.90 Unspecified dementia, unspecified severity, without behavioral disturbance, psychotic disturbance, mood disturbance, and anxiety; K22.2 Esophageal obstruction; E78.5 Hyperlipidemia, unspecified; K21.9 Gastro-esophageal reflux disease without esophagitis; E78.00 Pure hypercholesterolemia, unspecified; I95.9 Hypotension, unspecified; Z79.82 Long term (current) use of aspirin

== ENCOUNTER 2017-10-15 08:41 | Emergency (ER) | payer OTHER ==
[~2017-10-15 08:41] MED LIST changes: -SODIUM CHLORIDE 0.9% 1000ML 1,000 ML IV SCH
[2017-10-15 08:46] VITALS: TEMP 36.6
--- NOTE | 2017-10-15 08:56 | EMERGENCY ROOM VISIT NOTE ---
History Report prepared by Hany: Joana Obrien Under the Supervision of: Dr. Carl Castaneda M.D. First contact with patient: 08:46 Stated Complaint: FALL/LACERATION History of Present Illness The patient is a 82 year old female who presents to the Emergency Room with complaints of a fall occurring shortly prior to arrival. Per nursing staff, the patient fell on her bathroom floor at home, and now her mouth is filled with blood. The patient reports that she does not know what happened. The patient denies having neck pain and head pain. The patient denies being on blood thinners. Per her , the patient has cut her tongue before. Limited HPI secondary to dementia. Source of History: patient, spouse/significant other (), nursing staff History Limited By: dementia Onset: shortly prior to arrival Position: other (global) Quality: other (fall) Associated Symptoms: No headache (head pain ), No neck pain Review of Systems Limited ROS secondary to dementia. Past Medical & Surgical Medical Problems: (1) Dementia (2) Esophageal Reflux (3) Hyperlipidemia Nec/Nos (4) Hypothyroidism Nos (5) Pancreatitis (6) Pure Hypercholesterolem (7) Syncope and collapse Family History Patient reports no known family medical history. Social History Smoking Status: Never Smoker Alcohol Use: none Drug Use: none Marital Status: Housing Status: lives with significant other Occupation Status: retired Current/Historical Medications Scheduled Alendronate Sodium (Alendronate Sodium), 35 MG PO WK Aspirin Enteric Coated (Ecotrin Or Generic), 81 MG PO DAILY Calcium/Vitamin D (Os-Bakari 500 Plus D), 1 TAB PO QAM Cholecalciferol (Vitamin D3), 1 CAP PO DAILY Levothyroxine Sodium (Levothyroxine Sodium), 1 TAB PO QPM Simvastatin (Simvastatin), 40 MG PO QPM Allergies Coded Allergies: No Known Allergies (Verified , 10/15/17) Physical Exam Vital Signs Date Time Temp Pulse Resp B/P (MAP) Pulse Ox O2 Delivery O2 Flow Rate FiO2 10/15/17 10:35 107 20 163/76 97 10/15/17 08:46 36.6 107 20 152/74 96 Room Air Physical Exam GENERAL: Patient awake, alert, oriented x 3. Patient follows commands. Patient does not appear toxic. Patient is adequately hydrated and well- nourished. SKIN: No erythema, pallor, cyanosis or rash HEENT: Normal head, atraumatic, without lumps, bumps, or bruises. No Hemotympanum, Cota's, or Raccoon signs. Pupils equal, reactive to light and accommodation. 3 cm laceration on left tongue that is currently not bleeding. Neck: Without adenopathy, no neck vein distention. LUNGS: Clear to auscultation. No wheezes, no rales, no rhonchi. HEART: No murmurs. No gallops. No rubs ABDOMEN: No masses, no rebound, no hepatomegaly or splenomegaly. EXTREMITIES: No signs of trauma or infection. NEUROLOGIC: Cranial nerves II-XII within normal limits. No gross motor sensory function deficits. Medical Decision & Procedures Laboratory Results 10/15/17 10:09 Test 10/15/17 10:09 Red Blood Count 4.41 M/uL (4.2-5.4) Mean Corpuscular Volume 91.8 fL (80-100) Mean Corpuscular Hemoglobin 29.0 pg (25-34) Mean Corpuscular Hemoglobin Concent 31.6 g/dl (32-36) RDW Standard Deviation 46.9 fL (36.4-46.3) RDW Coefficient of Variation 13.9 % (11.5-14.5) Mean Platelet Volume 9.4 fL (7.4-10.4) Prothrombin Time 10.2 SECONDS (9.0-12.0) Prothromb Time International Ratio 1.0 (0.9-1.1) Activated Partial Thromboplast Time 25.6 SECONDS (21.0-31.0) Partial Thromboplastin Ratio 1.0 Laboratory results as stated above per my review. ED Course 0846: Past medical records reviewed. The patient was evaluated in room B12B. A complete history and physical examination was performed. 1000: I checked on the patient and spoke with her family. Her noted that the patient has cut her tongue before. 1115: Upon reevaluation, the patient appeared to have improvement of her symptoms. I discussed today's findings with her and her family. She and her family verbalized agreement of the treatment plan. She was discharged home. Medical Decision Nurses notes reviewed. Medical history sheet reviewed. Differential diagnosis includes but is not limited to: fall, tongue laceration, and anemia. The patient fell again resulting in a laceration to her tongue. She has had a similar experience in the past. On examination the tongue is no longer bleeding but there is a sealed wound approximately 3 cm over the top on the left side of the tongue. Hemoglobin and hematocrit were checked. They appear to be stable. Coagulation studies were within normal range. The patient has no other signs of trauma including her head, neck, chest or abdomen. She has a negative pelvic rock. I do not believe the patient requires any imaging studies. The family was counseled about reducing fall risk at home. They are currently investigating the possibility of a nursing facility for the patient. Medication Reconcilliation Current Medication List: was personally reviewed by me Blood Pressure Screening Patient's blood pressure: Elevated blood pressure Blood pressure disposition: Referred to PCP Impression Primary Impression: Laceration of tongue Additional Impression: Fall Scribe Attestation The scribe's documentation has been prepared under my direction and personally reviewed by me in its entirety. I confirm that the note above accurately reflects all work, treatment, procedures, and medical decision making performed by me. Departure Information Dispostion Home / Self-Care Referrals Braxton Rosado M.D. (PCP) Forms HOME CARE DOCUMENTATION FORM, IMPORTANT VISIT INFORMATION Additional Instructions Continue all of your current medications as prescribed. Follow-up with your family physician. Problem Qualifiers
[2017-10-15 10:33] LABS: HEMATOCRIT 40.5 % (37-47); MEAN CELL VOLUME 91.8 fL (80-100); MEAN CORPUSCULAR HGB CONC 31.6 g/dl (32-36); MEAN PLATELET VOLUME 9.4 fL (7.4-10.4); PLATELET COUNT 195 K/uL (130-400); RED BLOOD COUNT 4.41 M/uL (4.2-5.4); WHITE BLOOD COUNT 11.91 K/uL (4.8-10.8)
[2017-10-15 10:35] VITALS: BP 163/76; PULSE 107; O2SAT 97
[2017-10-15 10:48] LABS: PROTHROMBIN TIME (PATIENT) 10.2 SECONDS (9.0-12.0)
== END 2017-10-15 11:12 | disposition home or self-care (01) ==
LOC: EDBD 08:41 → C.EDB 08:42
DX: S01.512A Laceration without foreign body of oral cavity, initial encounter (principal); W18.30XA Fall on same level, unspecified, initial encounter; F03.90 Unspecified dementia, unspecified severity, without behavioral disturbance, psychotic disturbance, mood disturbance, and anxiety; E78.5 Hyperlipidemia, unspecified; E78.00 Pure hypercholesterolemia, unspecified; E03.9 Hypothyroidism, unspecified; Z79.82 Long term (current) use of aspirin; Z79.899 Other long term (current) drug therapy

== ENCOUNTER 2018-01-07 11:12 | Inpatient (IN) | payer OTHER ==
[~2018-01-07] VITALS: Ht 152.4 cm; Wt 62.0 kg
[~2018-01-07 11:12] MED LIST changes: -ALEN1TAB21 PO; +ALEN35TA42 PO
[2018-01-07 11:53] LABS: BASO % 0.1 %; BASO ABS # 0.01 K/uL (0-0.2); EOS % 1.5 %; EOS ABS # 0.13 K/uL (0-0.5); HEMATOCRIT 40.2 % (37-47); HEMOGLOBIN 13.2 g/dL (12.0-16.0); IG# 0.06 K/uL (0.00-0.02); LYMPH % 16.3 %; LYMPH ABS # 1.42 K/uL (1.2-3.4); MEAN CELL VOLUME 88.5 fL (80-100); MEAN CORPUSCULAR HEMOGLOBIN 29.1 pg (25-34); MEAN CORPUSCULAR HGB CONC 32.8 g/dl (32-36); MEAN PLATELET VOLUME 9.4 fL (7.4-10.4); MONO % 7.1 %; MONO ABS # 0.62 K/uL (0.11-0.59); NEUT % 74.3 %; NEUT ABS # 6.48 K/uL (1.4-6.5); PLATELET COUNT 215 K/uL (130-400); RED CELL DISTRIBUTION WIDTH CV 14.1 % (11.5-14.5); RED CELL DISTRIBUTION WIDTH SD 45.9 fL (36.4-46.3); WHITE BLOOD COUNT 8.72 K/uL (4.8-10.8)
[2018-01-07 12:18] LABS: ALBUMIN 3.8 gm/dl (3.4-5.0); ALT/SGPT 33 U/L (12-78); AST/SGOT 32 U/L (15-37); BLOOD UREA NITROGEN 27 mg/dl (7-18); CALCIUM 9.4 mg/dl (8.5-10.1); CARBON DIOXIDE 22 mmol/L (21-32); GLUCOSE 98 mg/dl (70-99); POTASSIUM 3.4 mmol/L (3.5-5.1); SODIUM 140 mmol/L (136-145)
[2018-01-07 12:21] LABS: ALKALINE PHOSPHATASE 66 U/L (45-117); TOTAL PROTEIN 7.8 gm/dl (6.4-8.2)
--- NOTE | 2018-01-07 12:48 | DIAGNOSTIC IMAGING REPORT ---
CHEST ONE VIEW PORTABLE HISTORY: SEIZURE COMPARISON: Chest 08/23/2017. FINDINGS: Low lung volumes. No pneumothorax. No pleural effusions. Diffuse interstitial thickening has progressed. No new focal lung consolidations. The heart remains borderline enlarged. Tortuous thoracic aorta, unchanged. Deformity within the left humeral head suggestive of an old injury or avascular necrosis. IMPRESSION: 1. Mild diffuse interstitial thickening which has progressed. This could be due to mild congestive change or an atypical pneumonitis. No focal lung consolidations. 2. Deformity within the left humeral head which may be due to old trauma or avascular necrosis. Electronically signed by: Andrei Castañeda M.D. 01/07/2018 12:46 PM Dictated Date/Time: 01/07/2018 12:42 PM
--- NOTE | 2018-01-07 13:06 | DIAGNOSTIC IMAGING REPORT ---
HEAD WITHOUT CONTRAST (CT) CT DOSE: 638.56 mGycm HISTORY: Mental status change 08/23/2017 TECHNIQUE: Multiaxial CT images of the head were performed without the use of intravenous contrast. A dose lowering technique was utilized adhering to the principles of ALARA. Comparison: 08/23/2017 Findings: The paranasal sinuses and mastoid air cells are clear. The calvarium and skull base are intact. The ventricles and sulci are within normal limits. There is no mass, hematoma, midline shift, or acute infarct. Considerable chronic small vessel change. Mild compensatory ventricular prominence. No acute process with no change from the prior exam. Impression: No acute intracranial abnormality. Chronic small vessel change. Atrophy. The above report was generated using voice recognition software. It may contain grammatical, syntax or spelling errors. Electronically signed by: Hector Arreola M.D. 01/07/2018 1:04 PM Dictated Date/Time: 01/07/2018 1:02 PM
--- NOTE | 2018-01-07 13:14 | DIAGNOSTIC IMAGING REPORT ---
LUMBAR SPINE CT CT DOSE: 610.33 mGycm HISTORY: low back pain TECHNIQUE: Multiaxial CT images of the lumbar spine were performed and reformatted in the sagittal and coronal plane without the use of contrast. A dose lowering technique was utilized adhering to the principles of ALARA. COMPARISON: Abdomen and pelvis CT 07/16/2014. FINDINGS: No acute fracture or subluxation within the lumbar spine. Moderate superior endplate compression fractures at T12 and L3 remain unchanged. No significant retropulsion. Mild disc space narrowing at L3-L4, L4-L5, and L5-S1. Moderate facet degenerative changes throughout the majority of the lumbar spine most pronounced at the L4-L5 and L5-S1 levels. The paravertebral soft tissues are unremarkable. Mild central canal narrowing at L2-L3 and L4-5 persist. IMPRESSION: 1. No acute fracture or subluxation within the lumbar spine. 2. Old moderate superior endplate compression fractures at T12 and L3, unchanged. Electronically signed by: Andrei Castañeda M.D. 01/07/2018 1:12 PM Dictated Date/Time: 01/07/2018 1:07 PM
[2018-01-07] MEDS ORDERED: AZITHROMYCIN IV 500 MG in DEXTROSE 5% 250ML 250 ML IV ONE (13:30)
--- NOTE | 2018-01-07 13:45 | EMERGENCY ROOM VISIT NOTE ---
History Report prepared by Nathanaelibvincent: Mckay Cedillo Under the Supervision of: Dr. Gilson Dawkins D.O. First contact with patient: 12:05 Chief Complaint: SEIZURE Stated Complaint: SEIZURE Nursing Triage Summary: Pt arrives ALS. and home health were attempting to get patient into bed and she had a seizure and fell to floor. Episode last approximately 30 seconds according to family. Family reports history of similar episodes with very long post ictal phase. Pt has blood on left side of face and looks like she bit her tongue. Pt was incontinent of urine. Pt arrives with snoring respirations, VSS. Opens eyes to verbal stimuli. Pt has history of dementia and according to EMS, only usually alert to person. Pt is not on medications for seizures. Pt was here recently for TIAs. Unable to follow commands. History of Present Illness The patient is a 82 year old female who presents to the Emergency Room by EMS with complaints of an episode of generalized seizure-like activity occurring 1.5 hours ago. She has a history of dementia. She has no known history of seizures. Per , the patient's episode lasted for about seven minutes and involved generalized convulsions. He states that she was unresponsive during the episode, and slowly came to afterwards. He notes that the patient has been here twice prior for similar symptoms which may have been seizures, though were diagnosed as syncopal episodes. The patient's notes that the patient woke up in the middle of the night last night (9 hours ago) to go to the bathroom, and was unable to move from the toilet without assistance from her son. Per son, the patient slipped out of bed later that night following this, which he states is normal for her. He notes that the patient slept on the floor for several hours following this. He adds that the patient bit her tongue during the episode. The patient's son states that the patient loss bladder continence during the episode today as well. HPI limited secondary to dementia. Source of History: family (son), spouse/significant other () History Limited By: dementia Onset: 1.5 hours ago Position: other (generalized) Symptom Intensity: about seven minutes Quality: other (seizure-like activity) Timing: other (episode) Note: Additional symptoms: loss of bladder continence. Review of Systems ROS limited secondary to dementia. Past Medical & Surgical Medical Problems: (1) Dementia (2) Esophageal Reflux (3) Hyperlipidemia Nec/Nos (4) Hypothyroidism Nos (5) Pancreatitis (6) Pure Hypercholesterolem (7) Syncope and collapse Family History Patient reports no known family medical history. Social History Smoking Status: Unknown if Ever Smoked Alcohol Use: none Drug Use: none Marital Status: Housing Status: lives with significant other Occupation Status: retired Current/Historical Medications Scheduled Alendronate Sodium (Alendronate Sodium), 35 MG PO WK Aspirin Enteric Coated (Ecotrin Or Generic), 81 MG PO DAILY Calcium/Vitamin D (Os-Bakari 500 Plus D), 1 TAB PO BID Cholecalciferol (Vitamin D3), 1 CAP PO DAILY Levothyroxine Sodium (Levothyroxine Sodium), 88 MCG PO QPM Simvastatin (Simvastatin), 40 MG PO QPM Allergies Coded Allergies: No Known Allergies (Verified , 01/07/18) Physical Exam Vital Signs Date Time Temp Pulse Resp B/P (MAP) Pulse Ox O2 Delivery O2 Flow Rate FiO2 01/07/18 13:02 105 21 130/79 96 Nasal Cannula 2.0 01/07/18 11:52 101 01/07/18 11:18 36.8 101 16 140/75 88 Room Air 01/07/18 11:18 97 Ambu-Bag 3.0 01/07/18 11:18 88 Room Air Physical Exam CONSTITUTIONAL/VITAL SIGNS: Reviewed / noted above. GENERAL: Non-toxic in appearance. Sleeping. INTEGUMENTARY: Warm, dry, and [place]. HEAD: Normocephalic. EYES: without scleral icterus or trauma. ENT/OROPHARYNX: clear and moist. Contusion to the anterolateral tongue. No active bleeding. LYMPHADENOPATHY/NECK: Is supple without lymphadenopathy or meningismus. RESPIRATORY: Lungs clear and equal. CARDIOVASCULAR: Regular rate and rhythm. GI/ABDOMEN: Soft and nontender. No organomegaly or pulsatile mass. No rebound or guarding. Normal bowel sounds. EXTREMITIES: Warm and well perfused. BACK: No CVA tenderness. NEUROLOGICAL: Intact without focal deficits. PSYCHIATRIC: normal affect. MUSCULOSKELETAL: Normally developed with good muscle tone. Medical Decision & Procedures ER Provider Diagnostic Interpretation: Radiology results as stated below per my review and radiologist interpretation: HEAD WITHOUT CONTRAST (CT) Findings: The paranasal sinuses and mastoid air cells are clear. The calvarium and skull base are intact. The ventricles and sulci are within normal limits. There is no mass, hematoma, midline shift, or acute infarct. Considerable chronic small vessel change. Mild compensatory ventricular prominence. No acute process with no change from the prior exam. Impression: No acute intracranial abnormality. Chronic small vessel change. Atrophy. The above report was generated using voice recognition software. It may contain grammatical, syntax or spelling errors. Electronically signed by: Hector Arreola M.D. 01/07/2018 1:[address] FINDINGS: No acute fracture or subluxation within the lumbar spine. Moderate superior endplate compression fractures at T12 and L3 remain unchanged. No significant retropulsion. Mild disc space narrowing at L3-L4, L4-L5, and L5-S1. Moderate facet degenerative changes throughout the majority of the lumbar spine most pronounced at the L4-L5 and L5-S1 levels. The paravertebral soft tissues are unremarkable. Mild central canal narrowing at L2-L3 and L4-5 persist. IMPRESSION: 1. No acute fracture or subluxation within the lumbar spine. 2. Old moderate superior endplate compression fractures at T12 and L3, unchanged. Electronically signed by: Andrei Castañeda M.D. 01/07/2018 1:12 PM CHEST ONE VIEW PORTABLE FINDINGS: Low lung volumes. No pneumothorax. No pleural effusions. Diffuse interstitial thickening has progressed. No new focal lung consolidations. The heart remains borderline enlarged. Tortuous thoracic aorta, unchanged. Deformity within the left humeral head suggestive of an old injury or avascular necrosis. IMPRESSION: 1. Mild diffuse interstitial thickening which has progressed. This could be due to mild congestive change or an atypical pneumonitis. No focal lung consolidations. 2. Deformity within the left humeral head which may be due to old trauma or avascular necrosis. Electronically signed by: Andrei Castañeda M.D. 01/07/2018 12:46 PM Laboratory Results 01/07/18 11:30 Red Blood Count 4.54, Mean Corpuscular Volume 88.5, Mean Corpuscular Hemoglobin 29.1, Mean Corpuscular Hemoglobin Concent 32.8, Mean Platelet Volume 9.4, Neutrophils (%) (Auto) 74.3, Lymphocytes (%) (Auto) 16.3, Monocytes (%) (Auto) 7.1, Eosinophils (%) (Auto) 1.5, Basophils (%) (Auto) 0.1, Neutrophils # (Auto) 6.48, Lymphocytes # (Auto) 1.42, Monocytes # (Auto) 0.62, Eosinophils # (Auto) 0.13, Basophils # (Auto) 0.01 01/07/18 11:30 Test 01/07/18 11:30 01/07/18 12:25 White Blood Count 8.72 K/uL (4.8-10.8) Red Blood Count 4.54 M/uL (4.2-5.4) Hemoglobin 13.2 g/dL (12.0-16.0) Hematocrit 40.2 % (37-47) Mean Corpuscular Volume 88.5 fL (80-100) Mean Corpuscular Hemoglobin 29.1 pg (25-34) Mean Corpuscular Hemoglobin Concent 32.8 g/dl (32-36) Platelet Count 215 K/uL (130-400) Mean Platelet Volume 9.4 fL (7.4-10.4) Neutrophils (%) (Auto) 74.3 % Lymphocytes (%) (Auto) 16.3 % Monocytes (%) (Auto) 7.1 % Eosinophils (%) (Auto) 1.5 % Basophils (%) (Auto) 0.1 % Neutrophils # (Auto) 6.48 K/uL (1.4-6.5) Lymphocytes # (Auto) 1.42 K/uL (1.2-3.4) Monocytes # (Auto) 0.62 K/uL (0.11-0.59) Eosinophils # (Auto) 0.13 K/uL (0-0.5) Basophils # (Auto) 0.01 K/uL (0-0.2) RDW Standard Deviation 45.9 fL (36.4-46.3) RDW Coefficient of Variation 14.1 % (11.5-14.5) Immature Granulocyte % (Auto) 0.7 % Immature Granulocyte # (Auto) 0.06 K/uL (0.00-0.02) Anion Gap 10.0 mmol/L (3-11) Estimated GFR () 68.5 Estimated GFR (Non- 59.1 BUN/Creatinine Ratio 30.5 (10-20) Calcium Level 9.4 mg/dl (8.5-10.1) Total Bilirubin 0.5 mg/dl (0.2-1) Aspartate Amino Transf (AST/SGOT) 32 U/L (15-37) Alanine Aminotransferase (ALT/SGPT) 33 U/L (12-78) Alkaline Phosphatase 66 U/L (45-117) Total Protein 7.8 gm/dl (6.4-8.2) Albumin 3.8 gm/dl (3.4-5.0) Globulin 4.0 gm/dl (2.5-4.0) Albumin/Globulin Ratio 1.0 (0.9-2) Urine Color YELLOW Urine Appearance CLEAR (CLEAR) Urine pH 6.0 (4.5-7.5) Urine Specific [place] 1.021 (1.000-1.030) Urine Protein NEG (NEG) Urine Glucose (UA) NEG (NEG) Urine Ketones NEG (NEG) Urine Occult Blood TRACE (NEG) Urine Nitrite NEG (NEG) Urine Bilirubin NEG (NEG) Urine Urobilinogen NEG (NEG) Urine Leukocyte Esterase NEG (NEG) Urine WBC (Auto) 1-5 /hpf (0-5) Urine RBC (Auto) 0-4 /hpf (0-4) Urine Hyaline Casts (Auto) 1-5 /lpf (0-5) Urine Epithelial Cells (Auto) 10-20 /lpf (0-5) Urine Bacteria (Auto) NEG (NEG) Laboratory results as stated above per my review. ECG Per My Interpretation Indication: other (seizure-like activity) Rate (beats per minute): 86 Rhythm: normal sinus Findings: no acute ischemic change, no ectopy, other (No ST elevations.) ED Course 1206: Previous medical records were reviewed. The patient was evaluated in room C8. A complete history and physical examination was performed. 1320: On reevaluation, the patient is resting comfortably. I discussed the results and findings with her family. They verbalized agreement of the treatment plan. I spoke with Dr. Jarrett of the [facility] Hospitalist Service. The patient will be evaluated for further management and care. Medical Decision Differential diagnosis: Etiologies such as infection, hypoglycemia, electrolyte abnormalities, cardiac sources, intracerebral event, trauma, toxicologic, neurologic, as well as others were entertained. This is a 82-year-old female who presents to the ED with a chief complaint of seizure. The patient, according to the had a 5-10 minute seizure around 10 AM today. He states that overnight she was sitting on the toilet and did not get up. The son went over and helped her off the toilet. She subsequently laid on the floor and fell asleep there. As the and home health worker were getting the patient up off the floor, she had a tonic-clonic seizure activity that lasted for about 7 minutes, according to the . She did bite her tongue. The patient was transported here by EMS. She was sleepy but arousable for EMS. The patient was sleeping on my exam. Vital signs were stable other than a saturation of 80%. She was placed on some nasal cannula oxygen which supplemented her saturations to normal. The patient, according to the family, has no history of seizures although she has been in the hospital twice in the past year for syncope. She has not had a formal neurological evaluation. The patient does not take antiseizure medications. CT scan of the brain was negative for acute process. CT scan of the lumbar spine was also negative for acute process. CBC, complete metabolic panel was unremarkable. Urine did not show infection. EKG showed a normal sinus rhythm. Chest x-ray revealed some mild diffuse changes that could be congestive changes or an atypical pneumonitis. The patient was started on Zithromax IV. Her oxygen saturations were noted to be 88% on room air. She did require some oxygen and was seen by the hospitalist for further inpatient evaluation and care. Medication Reconcilliation Current Medication List: was personally reviewed by me Blood Pressure Screening Patient's blood pressure: Elevated blood pressure Blood pressure disposition: Elevated BP felt to be situational Consults Time Called: 1320 Consulting Physician: Dr. Kolby Laurent [facility] Hospitalist Returned Call: [phone] Discussed the patient's case. The patient will be evaluated for further treatment and disposition. Impression Primary Impression: Seizure Additional Impressions: Pneumonia Hypoxia Scribe Attestation The scribe's documentation has been prepared under my direction and personally reviewed by me in its entirety. I confirm that the note above accurately reflects all work, treatment, procedures, and medical decision making performed by me. Departure Information Dispostion Being Evaluated By Hospitalist Referrals Braxton Rosado M.D. (PCP) Patient Instructions My [facility] Problem Qualifiers
[2018-01-07] MEDS ORDERED: CEFTRIAXONE SOD INJ 1 GM ADDVIAL IV ONE (14:15)
[2018-01-07] MEDS ORDERED: ONDANSETRON INJ 2 MG/ML 2 ML VIAL IV PRN ×2 (14:15→17:45)
[2018-01-07] MEDS ORDERED: MAGNESIUM HYDROXIDE SUSP 30 ML UDC PO PRN ×2 (14:15→17:45)
[2018-01-07] MEDS ORDERED: POLYETHYLENE (MIRALAX) 17 GM PACK PO PRN ×2 (14:45→17:45)
[2018-01-07] MEDS ORDERED: CEFTRIAXONE SOD INJ 1000 MG in DEXTROSE 5% 50ML IV SCH (16:00)
[2018-01-07 16:22] VITALS: BP 121/64; PULSE 107; TEMP 36.7; O2SAT 94; Ht 152.4 cm; Wt 62.0 kg
[2018-01-07] MEDS ORDERED: ACETAMINOPHEN IV 650 MG in EMPTY BAG 0 ML IV PRN (16:45)
[2018-01-07] MEDS ORDERED: ALUMINUM/MAGNESIUM/SIMETH (MAALOX MAX) 30 ML UDC PO PRN (17:45)
[2018-01-07] MEDS ORDERED: ACETAMINOPHEN 325 MG TAB PO PRN (17:45)
--- NOTE | 2018-01-07 19:57 | History and Physical ---
History & Physical Date & Time of Service: Jan 07, 2018 at 16:25 Chief Complaint: Seizure Primary Care Physician: Braxton Rosado M.D. History of Present Illness Source: family Rangel is a 82 yo female PMH of dementia x 10 years which has gradually worsened over the past several years who presents with a witnessed seizure on the morning of 01/07/18. History provided by family due to baseline advanced dementia. Patient is unsteady at baseline and family notes over the past few days she has been more agitated at night and in the mornings. Last night patient had "rough night" and slept on the floor (which is not abnormal for her) . Home health worker and attempted to get her up to be dressed today when she let out a cry and she started having tonic-clonic seizure like activity. She became incontinent of urine, her eyes were mostly open, and she bit her tongue. The seizure lasted 7 minutes and she was held upright by 2 people for the entirety of seizure. Patient is otherwise healthy, but her dementia has been worsening over the past several months. She has had 2 similar presentations to the ED in the past 6 months and other "minor but similar episodes" for which they did not present to the ED, but this is the first episode where a seizure has been witnessed. She did have a fall 4 days ago during which she did not have LOC but she landed on her right lower back; this has been treated recently with advil and tylenol. She has been eating and drinking well over the past several days. She has no significant PMH of stroke, [place], or diagnosed seizure disorder. Regarding dementia: Still aware of family members, but gradual worsening over 10 years, last year especially. At baseline she is social, calm, likes to talk, reads the newspaper. At night, she is very fidgety/agitated. She lives at home with and has had home health for about 1 year which comes twice weekly. has been looking into placement at [facility]. She has 2 sons who live locally and one daughter in [place]. Past Medical/Surgical History Medical Problems: (1) Dementia Status: Chronic (2) Esophageal Reflux Status: Chronic (3) Hyperlipidemia Nec/Nos Status: Chronic (4) Hypothyroidism Nos Status: Chronic (5) Pancreatitis Status: Resolved Family History Patient reports no known family medical history. Social History Smoking Status: Never Smoker Alcohol Use: none Drug Use: none Marital Status: Housing status: lives with family Occupational Status: retired Immunizations History of Tetanus Vaccine?: Yes History of Pneumococcal: Unknown History of Hepatitis B Vaccine: Unknown Multi-Drug Resistant Organisms History of MDRO: No Allergies Coded Allergies: No Known Allergies (Verified , 01/07/18) Home Medications Scheduled Alendronate Sodium (Alendronate Sodium), 35 MG PO WK Aspirin Enteric Coated (Ecotrin Or Generic), 81 MG PO DAILY Calcium/Vitamin D (Os-Bakari 500 Plus D), 1 TAB PO BID Cholecalciferol (Vitamin D3), 1 CAP PO DAILY Levothyroxine Sodium (Levothyroxine Sodium), 88 MCG PO QPM Simvastatin (Simvastatin), 40 MG PO QPM Review of Systems Unable to assess due to patient's baseline dementia Physical Exam Vital Signs Date Time Temp Pulse Resp B/P (MAP) Pulse Ox O2 Delivery O2 Flow Rate FiO2 01/07/18 15:01 104 18 159/96 94 Room Air 01/07/18 14:04 84 01/07/18 13:02 105 21 130/79 96 Nasal Cannula 2.0 01/07/18 11:52 101 01/07/18 11:18 36.8 101 16 140/75 88 Room Air 01/07/18 11:18 97 Ambu-Bag 3.0 01/07/18 11:18 88 Room Air General Appearance: WD/WN, + pertinent finding (Agitated, taking ) Head: normocephalic, atraumatic Eyes: normal inspection, PERRL, sclerae normal ENT: normal ENT inspection, hearing grossly normal, pharynx normal, + pertinent finding (Dried blood at opening of mouth) Neck: no adenopathy, no carotid bruits, trachea midline Respiratory/Chest: chest non-tender, lungs clear, normal breath sounds, no respiratory distress, no accessory muscle use Cardiovascular: regular rate, rhythm, no gallop, no JVD, no murmur, normal peripheral pulses Abdomen/GI: normal bowel sounds, non tender, soft, no organomegaly, no pulsatile mass Extremities/Musculoskelatal: normal inspection, no calf tenderness, normal range of motion ( reports right shoulder has reduced ROM 2/2 past injury) , + pedal edema (1+ LLE) Neurologic/Psych: 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-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 nml as tested, no motor/sensory deficits, + disoriented Skin: normal color, warm/dry Diagnostics Laboratory Results Results Past 24 Hours Test 01/07/18 11:30 01/07/18 12:25 Range/Units White Blood Count 8.72 4.8-10.8 K/uL Red Blood Count 4.54 4.2-5.4 M/uL Hemoglobin 13.2 12.0-16.0 g/dL Hematocrit 40.2 37-47 % Mean Corpuscular Volume 88.5 80-100 fL Mean Corpuscular Hemoglobin 29.1 25-34 pg Mean Corpuscular Hemoglobin Concent 32.8 32-36 g/dl Platelet Count 215 130-400 K/uL Mean Platelet Volume 9.4 7.4-10.4 fL Neutrophils (%) (Auto) 74.3 % Lymphocytes (%) (Auto) 16.3 % Monocytes (%) (Auto) 7.1 % Eosinophils (%) (Auto) 1.5 % Basophils (%) (Auto) 0.1 % Neutrophils # (Auto) 6.48 1.4-6.5 K/uL Lymphocytes # (Auto) 1.42 1.2-3.4 K/uL Monocytes # (Auto) 0.62 0.11-0.59 K/uL Eosinophils # (Auto) 0.13 0-0.5 K/uL Basophils # (Auto) 0.01 0-0.2 K/uL RDW Standard Deviation 45.9 36.4-46.3 fL RDW Coefficient of Variation 14.1 11.5-14.5 % Immature Granulocyte % (Auto) 0.7 % Immature Granulocyte # (Auto) 0.06 0.00-0.02 K/uL Sodium Level 140 136-145 mmol/L Potassium Level 3.4 3.5-5.1 mmol/L Chloride Level 108 98-107 mmol/L Carbon Dioxide Level 22 21-32 mmol/L Anion Gap 10.0 3-11 mmol/L Blood Urea Nitrogen 27 7-18 mg/dl Creatinine 0.90 0.60-1.20 mg/dl Estimated GFR () 68.5 Estimated GFR (Non- 59.1 BUN/Creatinine Ratio 30.5 10-20 Random Glucose 98 70-99 mg/dl Calcium Level 9.4 8.5-10.1 mg/dl Total Bilirubin 0.5 0.2-1 mg/dl Aspartate Amino Transf (AST/SGOT) 32 15-37 U/L Alanine Aminotransferase (ALT/SGPT) 33 12-78 U/L Alkaline Phosphatase 66 45-117 U/L Total Protein 7.8 6.4-8.2 gm/dl Albumin 3.8 3.4-5.0 gm/dl Globulin 4.0 2.5-4.0 gm/dl Albumin/Globulin Ratio 1.0 0.9-2 Urine Color YELLOW Urine Appearance CLEAR CLEAR Urine pH 6.0 4.5-7.5 Urine Specific Wray 1.021 1.000-1.030 Urine Protein NEG NEG Urine Glucose (UA) NEG NEG Urine Ketones NEG NEG Urine Occult Blood TRACE NEG Urine Nitrite NEG NEG Urine Bilirubin NEG NEG Urine Urobilinogen NEG NEG Urine Leukocyte Esterase NEG NEG Urine WBC (Auto) 1-5 0-5 /hpf Urine RBC (Auto) 0-4 0-4 /hpf Urine Hyaline Casts (Auto) 1-5 0-5 /lpf Urine Epithelial Cells (Auto) 10-20 0-5 /lpf Urine Bacteria (Auto) NEG NEG Diagnostic Radiology HEAD WITHOUT CONTRAST (CT) Findings: The paranasal sinuses and mastoid air cells are clear. The calvarium and skull base are intact. The ventricles and sulci are within normal limits. There is no mass, hematoma, midline shift, or acute infarct. Considerable chronic small vessel change. Mild compensatory ventricular prominence. No acute process with no change from the prior exam. Impression: No acute intracranial abnormality. Chronic small vessel change. Atrophy. The above report was generated using voice recognition software. It may contain grammatical, syntax or spelling errors. Electronically signed by: Hector Arreola M.D. 01/07/2018 1:[address] FINDINGS: No acute fracture or subluxation within the lumbar spine. Moderate superior endplate compression fractures at T12 and L3 remain unchanged. No significant retropulsion. Mild disc space narrowing at L3-L4, L4-L5, and L5-S1. Moderate facet degenerative changes throughout the majority of the lumbar spine most pronounced at the L4-L5 and L5-S1 levels. The paravertebral soft tissues are unremarkable. Mild central canal narrowing at L2-L3 and L4-5 persist. IMPRESSION: 1. No acute fracture or subluxation within the lumbar spine. 2. Old moderate superior endplate compression fractures at T12 and L3, unchanged. Electronically signed by: Andrei Castañeda M.D. 01/07/2018 1:12 PM CHEST ONE VIEW PORTABLE FINDINGS: Low lung volumes. No pneumothorax. No pleural effusions. Diffuse interstitial thickening has progressed. No new focal lung consolidations. The heart remains borderline enlarged. Tortuous thoracic aorta, unchanged. Deformity within the left humeral head suggestive of an old injury or avascular necrosis. IMPRESSION: 1. Mild diffuse interstitial thickening which has progressed. This could be due to mild congestive change or an atypical pneumonitis. No focal lung consolidations. 2. Deformity within the left humeral head which may be due to old trauma or avascular necrosis. Electronically signed by: Andrei Castañeda M.D. 01/07/2018 12:46 PM EKG Rate (beats per minute): 86 Rhythm: normal sinus Findings: no acute ischemic change, no ectopy, other (No ST elevations.) Normal EKG Impression Assessment and Plan Claire is an 82 yo female with PMH advanced dementia, Hypothyroidism, HLD, and osteoporosis admitted for witnessed seizure 01/07/18. She has been previously admitted for similar "syncopal" episodes twice in the past 6 months. Seizure lasted about 7 minutes and she had urinary incontinence and bit her tongue, and she has been agitated since the episode (about 8 hours). 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 pneumonia Afebrile, nl WBC, clear lungs on exam, CXR shows no focal consolidation DCd abx from ED HLD Continue simvastatin 40 Hypothyroidism Check TSH in am Continue home dose 88mcg levothyroxine Osteoporosis Continue home supplements DVTP: lovenox, SCD, MIL Code: Full Dispo: Med surg, PT/OT on board for discharge eval Resident Physician Supervision Note: I interviewed and examined the patient. Discussed with Dr. Harvey and agree with findings and plan as documented in the note. Any exceptions or clarifications are listed here: None Documented By: Barber Marin no HPI or ROS obtainable did appear to have sseizure per family complete w tongue biting also looking for placement for dementia vitals noted nad breathing - lungs cta b/l no r/r/w good spontaneous effort. seizure - no new brain lesion on CT, highly doubt she would tolerate MRI - treat w depakote dementia - restlessness - hopefully depakote will help this as well otherwise as above Level of Care Med/Surg Resuscitation Status FULL RESUSCITATION VTE Prophylaxis VTE Risk Assessment Done? Y/N: Yes Risk Level: Moderate Given or contraindicated: Enoxaparin (Lovenox)SQ, T.E.D. Stockings, SCD's Resident Tracking Resident Involvement: Resident Care Provided Care Provided: Adult Hospital Medicine
[2018-01-07] MEDS: VALPROIC ACID 500 MG/10 ML UDP PO SCH (21:35)
[2018-01-07] MEDS: LEVOTHYROXINE 88 MCG TAB PO SCH (21:35)
[2018-01-07] MEDS: SIMVASTATIN 40 MG TAB PO SCH (21:35)
[2018-01-07] MEDS: ENOXAPARIN 40 MG/0.4 ML SYR SQ SCH (21:36)
[2018-01-07] MEDS: CALCIUM 600MG + VIT D 400 IU TAB PO SCH (21:36)
[2018-01-07 23:06] VITALS: BP 138/75; PULSE 74; TEMP 36.3; O2SAT 94
[2018-01-08] MEDS: VALPROIC ACID 500 MG/10 ML UDP PO SCH (07:40)
[2018-01-08] MEDS: CALCIUM 600MG + VIT D 400 IU TAB PO SCH ×2 (07:40→22:09)
[2018-01-08] MEDS: ASPIRIN 81 MG ECTAB PO SCH (07:40)
[2018-01-08 07:45] LABS: HEMATOCRIT 36.7 % (37-47); HEMOGLOBIN 11.9 g/dL (12.0-16.0); MEAN CORPUSCULAR HEMOGLOBIN 28.5 pg (25-34); MEAN CORPUSCULAR HGB CONC 32.4 g/dl (32-36); MEAN PLATELET VOLUME 9.1 fL (7.4-10.4); PLATELET COUNT 206 K/uL (130-400); RED CELL DISTRIBUTION WIDTH CV 14.3 % (11.5-14.5); RED CELL DISTRIBUTION WIDTH SD 46.1 fL (36.4-46.3); WHITE BLOOD COUNT 7.83 K/uL (4.8-10.8)
[2018-01-08 07:59] VITALS: O2SAT 94
[2018-01-08 08:10] LABS: ALBUMIN 3.3 gm/dl (3.4-5.0); CALCIUM 8.9 mg/dl (8.5-10.1); CREATININE 0.95 mg/dl (0.60-1.20); POTASSIUM 3.4 mmol/L (3.5-5.1)
[2018-01-08 08:20] LABS: TOTAL PROTEIN 6.9 gm/dl (6.4-8.2)
[2018-01-08] MEDS ORDERED: CEFTRIAXONE SOD INJ 1 GM ADDVIAL IV SCH (09:00)
[2018-01-08] MEDS ORDERED: AZITHROMYCIN IV 250 MG in DEXTROSE 5% 250ML 250 ML IV SCH (14:00)
[2018-01-08 15:21] VITALS: BP 163/78; PULSE 67; TEMP 36.6; O2SAT 96
--- NOTE | 2018-01-08 17:49 | Family Medicine Progress Note ---
Progress Note Date of Service Jan 08, 2018. Subjective Pt evaluation today including: conversation w/ patient, physical exam, chart review, lab review, review of inpatient medication list Pain: Patient states she has no pain in belly, chest, or back when asked PO Intake: Patient refusing food however tried some banks and toast at request this am Voiding: incontinence, voiding difficulty (reportedly refusing assistance to restroom, 300 mL residual) Patient reportedly agitated per nursing, refusing medications and food, pulling hair of nurses and swinging at nurses.. At my request she tried some banks and toast and continued to eat a bit. Continues to refuse being dressed Additional Comments: Unable to obtain 2/2 patient's baseline advanced dementia Medications Current Inpatient Medications Medications (Trade) Dose Ordered Sig/Minerva Route Start Time Stop Time Status Last Admin Dose Admin Acetaminophen (Tylenol Tab) 650 mg Q4H PRN PO 01/07/18 14:15 02/06/18 14:14 Magnesium Hydroxide (Milk Of Magnesia Susp) 30 ml Q6H PRN PO 01/07/18 14:15 02/06/18 14:14 Polyethylene (Miralax Powder Packet) 17 gm DAILY PRN PO 01/07/18 14:45 02/06/18 14:44 Ondansetron HCl (Zofran Inj) 4 mg Q6H PRN IV 01/07/18 14:15 02/06/18 14:14 Acetaminophen 650 mg/Empty Bag 65 ml @ 260 mls/hr Q6H PRN IV 01/07/18 16:45 02/06/18 16:44 01/07/18 20:09 260 MLS/HR Enoxaparin Sodium (Lovenox Inj) 40 mg Q24H SQ 01/07/18 21:00 02/06/18 20:59 01/08/18 22:11 40 MG Al Hydrox/Mg Hydrox/Simethicone (Maalox Max Susp) 15 ml Q4H PRN PO 01/07/18 17:45 02/06/18 17:44 Aspirin (Ecotrin Tab) 81 mg DAILY PO 01/08/18 09:00 02/07/18 08:59 01/08/18 07:40 81 MG Calcium/Vitamin D (Caltrate Plus Tab) 1 tab BID PO 01/07/18 21:00 02/06/18 20:59 01/08/18 22:09 1 TAB Levothyroxine Sodium (Synthroid Tab) 88 mcg QPM PO 01/07/18 21:00 02/06/18 20:59 01/08/18 22:13 88 MCG Simvastatin (Zocor Tab) 40 mg QPM PO 01/07/18 21:00 02/06/18 20:59 01/08/18 22:11 40 MG Divalproex Sodium (Depakote Sprinkle Cap) 500 mg BID PO 01/08/18 21:00 02/07/18 20:59 01/08/18 22:11 500 MG Objective Vital Signs Date Time Temp Pulse Resp B/P (MAP) Pulse Ox O2 Delivery O2 Flow Rate FiO2 01/08/18 16:00 Room Air 01/08/18 15:21 36.6 67 18 163/78 (106) 96 Room Air 01/08/18 07:59 94 Room Air 01/08/18 00:00 Room Air 01/07/18 23:06 36.3 74 22 138/75 (96) 94 Room Air Physical Exam General Appearance: WD/WN, no apparent distress Eyes: normal inspection, PERRL, EOMI, sclerae normal ENT: hearing grossly normal, pharynx normal Neck: supple, no adenopathy, no JVD, no carotid bruits, trachea midline Respiratory/Chest: chest non-tender, lungs clear, normal breath sounds, no respiratory distress, no accessory muscle use Cardiovascular: regular rate, rhythm, no edema, no gallop, no JVD, no murmur Abdomen: normal bowel sounds, non tender, soft, no organomegaly, no pulsatile mass Extremities: normal range of motion, non-tender, normal inspection, no pedal edema, no calf tenderness Neurologic/Psychiatric: no motor/sensory deficits, + disoriented, + pertinent finding (baseline advanced dementia) Skin: normal color, warm/dry, no rash Laboratory Results Last Resulted 01/08/18 07:11 Last Resulted 01/08/18 07:11 Assessment and Plan Claire is an 82 yo female with PMH advanced dementia, Hypothyroidism, HLD, and osteoporosis admitted for witnessed seizure 01/07/18. She has been previously admitted for similar "syncopal" episodes twice in the past 6 months. Seizure lasted about 7 minutes and she had urinary incontinence and bit her tongue, and she has been agitated since the episode. Seizures, 1st witnessed Non contrast CT Head negative for acute pathology/bleed; could consider further imaging (MRI/CT w contrast) if seizes again however agitation would likely prevent successful scan Continue on Depakote 500mg BID; adjust dose prn; changed to sprinkle regimen Labs: TSH, BMP, liver profile, mag, b12 all WNL Consider neuro consult if seizes again Dementia 1:1 observation manager mobility discussion for placement options Recent Hx of falls PT/OT ordered ? pneumonia Afebrile, nl WBC, clear lungs on exam, CXR shows no focal consolidation DCd abx from ED HLD Continue simvastatin 40 Hypothyroidism TSH normal Continue home dose 88mcg levothyroxine Osteoporosis Continue home supplements DVTP: lovenox, SCD, MIL Code: Full Dispo: Med surg, PT/OT on board for discharge eval Resident Physician Supervision Note: I interviewed and examined the patient. Discussed with Dr. Harvey and agree with findings and plan as documented in the note. Any exceptions or clarifications are listed here: None Documented By: Barber Marin no HPI or ROS obtainable tolerating depakote well no further seizures seeems less restless vitals noted nad breathing unlabored no pallor or icterus seizures - depakote dementia - depakote for behaviors - appearing fairly calm anticipate placement Resident Tracking Resident Involvement: Resident Care Provided Care Provided: Adult Hospital Medicine
[2018-01-08] MEDS: DIVALPROEX SODIUM SPRINKLE 125 MG CAP PO SCH (22:11)
[2018-01-08] MEDS: ENOXAPARIN 40 MG/0.4 ML SYR SQ SCH (22:11)
[2018-01-08] MEDS: SIMVASTATIN 40 MG TAB PO SCH (22:11)
[2018-01-08] MEDS: LEVOTHYROXINE 88 MCG TAB PO SCH (22:13)
[2018-01-08 22:59] VITALS: BP 144/79; PULSE 90; TEMP 37.3; O2SAT 95
[2018-01-09] MEDS: CALCIUM 600MG + VIT D 400 IU TAB PO SCH ×2 (07:28→20:37)
[2018-01-09] MEDS: ASPIRIN 81 MG ECTAB PO SCH (07:29)
[2018-01-09] MEDS: DIVALPROEX SODIUM SPRINKLE 125 MG CAP PO SCH ×2 (07:29→20:38)
[2018-01-09 08:00] VITALS: BP 120/65; PULSE 87; TEMP 36.5; O2SAT 95
[2018-01-09 08:00] LABS: HEMATOCRIT 39.6 % (37-47); HEMOGLOBIN 13.1 g/dL (12.0-16.0); MEAN CELL VOLUME 88.2 fL (80-100); MEAN CORPUSCULAR HEMOGLOBIN 29.2 pg (25-34); MEAN CORPUSCULAR HGB CONC 33.1 g/dl (32-36); MEAN PLATELET VOLUME 9.4 fL (7.4-10.4); PLATELET COUNT 194 K/uL (130-400); RED CELL DISTRIBUTION WIDTH CV 14.3 % (11.5-14.5); RED CELL DISTRIBUTION WIDTH SD 46.8 fL (36.4-46.3); WHITE BLOOD COUNT 7.75 K/uL (4.8-10.8)
[2018-01-09 08:30] LABS: CALCIUM 8.8 mg/dl (8.5-10.1); CREATININE 0.9 mg/dl (0.60-1.20); POTASSIUM 3.4 mmol/L (3.5-5.1)
[2018-01-09 12:05] VITALS: BP 143/73; PULSE 108; TEMP 36.7; O2SAT 94
[2018-01-09 15:41] VITALS: BP 140/68; PULSE 84; TEMP 37; O2SAT 94
[2018-01-09 16:00] VITALS: O2SAT 94
--- NOTE | 2018-01-09 20:02 | Family Medicine Progress Note ---
Progress Note Date of Service Jan 09, 2018. Subjective Pt evaluation today including: conversation w/ patient, conversation w/ family , physical exam, chart review, review of inpatient medication list Pain: Reports no pain PO Intake: Tolerating well Voiding: no voiding problems Patient is much improved today. She is back to her baseline per family. more interactive, less agitated and combative. All Other Systems: Reviewed and Negative (Unable to ascertain ROS 2/2 basline severe dementia but patient reports 'No' to query of any pain in chest, back, stomach, head. legs) Medications Current Inpatient Medications Medications (Trade) Dose Ordered Sig/Minerva Route Start Time Stop Time Status Last Admin Dose Admin Acetaminophen (Tylenol Tab) 650 mg Q4H PRN PO 01/07/18 14:15 02/06/18 14:14 Magnesium Hydroxide (Milk Of Magnesia Susp) 30 ml Q6H PRN PO 01/07/18 14:15 02/06/18 14:14 Polyethylene (Miralax Powder Packet) 17 gm DAILY PRN PO 01/07/18 14:45 02/06/18 14:44 Ondansetron HCl (Zofran Inj) 4 mg Q6H PRN IV 01/07/18 14:15 02/06/18 14:14 Acetaminophen 650 mg/Empty Bag 65 ml @ 260 mls/hr Q6H PRN IV 01/07/18 16:45 02/06/18 16:44 01/07/18 20:09 260 MLS/HR Enoxaparin Sodium (Lovenox Inj) 40 mg Q24H SQ 01/07/18 21:00 02/06/18 20:59 01/09/18 20:37 40 MG Al Hydrox/Mg Hydrox/Simethicone (Maalox Max Susp) 15 ml Q4H PRN PO 01/07/18 17:45 02/06/18 17:44 Aspirin (Ecotrin Tab) 81 mg DAILY PO 01/08/18 09:00 02/07/18 08:59 01/09/18 07:29 81 MG Calcium/Vitamin D (Caltrate Plus Tab) 1 tab BID PO 01/07/18 21:00 02/06/18 20:59 01/09/18 20:37 1 TAB Levothyroxine Sodium (Synthroid Tab) 88 mcg QPM PO 01/07/18 21:00 02/06/18 20:59 01/09/18 20:37 88 MCG Simvastatin (Zocor Tab) 40 mg QPM PO 01/07/18 21:00 02/06/18 20:59 01/09/18 20:37 40 MG Divalproex Sodium (Depakote Sprinkle Cap) 500 mg BID PO 01/08/18 21:00 02/07/18 20:59 01/09/18 20:38 500 MG Objective Vital Signs Date Time Temp Pulse Resp B/P (MAP) Pulse Ox O2 Delivery O2 Flow Rate FiO2 01/09/18 16:00 94 Room Air 01/09/18 15:41 37.0 84 18 140/68 (92) 94 Room Air 01/09/18 12:05 36.7 108 18 143/73 (96) 94 Room Air 01/09/18 08:00 36.5 87 18 120/65 (83) 95 Room Air 01/09/18 08:00 95 Room Air 01/09/18 00:00 Room Air Physical Exam General Appearance: WD/WN, no apparent distress Eyes: normal inspection, PERRL, EOMI, sclerae normal ENT: hearing grossly normal, pharynx normal Neck: supple, no adenopathy, no JVD, no carotid bruits, trachea midline Respiratory/Chest: chest non-tender, lungs clear, normal breath sounds, no respiratory distress, no accessory muscle use Cardiovascular: regular rate, rhythm, no edema, no gallop, no JVD, no murmur Abdomen: normal bowel sounds, non tender, soft Extremities: normal range of motion, non-tender, normal inspection, no pedal edema, no calf tenderness Neurologic/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 She has been previously admitted for similar "syncopal" episodes twice in the past 6 months. Seizure lasted about 7 minutes and she had urinary incontinence and bit her tongue, and she has been agitated since the episode. Seizures, 1st witnessed Non contrast CT Head negative for acute pathology/bleed; could consider further imaging (MRI/CT w contrast) if seizes again however agitation would likely prevent successful scan Continue on Depakote 500mg BID; adjust dose prn; changed to sprinkle regimen Labs: TSH, BMP, liver profile, mag, b12 all WNL Consider neuro consult if seizes again Patient has had no seizure episodes since admission, has become less agitated. 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 pneumonia Afebrile, nl WBC, clear lungs on exam, CXR shows no focal consolidation DCd abx from ED HLD Continue simvastatin 40 Hypothyroidism TSH normal Continue home dose 88mcg levothyroxine Osteoporosis Continue home supplements DVTP: lovenox, SCD, MIL Code: Full Dispo: Med surg, PT/OT on board for discharge eval, for placement/home tomorrow Resident Physician Supervision Note: I interviewed and examined the patient. Discussed with Dr. Harvey and agree with findings and plan as documented in the note. Any exceptions or clarifications are listed here: None Documented By: Barber Marin acting better, pleasant no further seizures vitals noted nad breathing unlabored no pallor or icterus dementia, seizures -doing better on depakote, hopefully home tomorrow Resident Tracking Resident Involvement: Resident Care Provided Care Provided: Adult Hospital Medicine
[2018-01-09] MEDS: ENOXAPARIN 40 MG/0.4 ML SYR SQ SCH (20:37)
[2018-01-09] MEDS: SIMVASTATIN 40 MG TAB PO SCH (20:37)
[2018-01-09] MEDS: LEVOTHYROXINE 88 MCG TAB PO SCH (20:37)
[2018-01-09 23:54] VITALS: BP 145/80; PULSE 98; TEMP 36.9; O2SAT 92
[2018-01-10 07:24] VITALS: BP 133/76; PULSE 89; TEMP 36.8; O2SAT 95
[2018-01-10 08:19] LABS: HEMATOCRIT 38.9 % (37-47); HEMOGLOBIN 12.9 g/dL (12.0-16.0); MEAN CELL VOLUME 88.8 fL (80-100); MEAN CORPUSCULAR HEMOGLOBIN 29.5 pg (25-34); MEAN CORPUSCULAR HGB CONC 33.2 g/dl (32-36); MEAN PLATELET VOLUME 9.3 fL (7.4-10.4); PLATELET COUNT 210 K/uL (130-400); RED CELL DISTRIBUTION WIDTH CV 14.3 % (11.5-14.5); RED CELL DISTRIBUTION WIDTH SD 46.8 fL (36.4-46.3); WHITE BLOOD COUNT 8.11 K/uL (4.8-10.8)
[2018-01-10] MEDS: ASPIRIN 81 MG ECTAB PO SCH (08:36)
[2018-01-10] MEDS: CALCIUM 600MG + VIT D 400 IU TAB PO SCH ×2 (08:36→21:16)
[2018-01-10] MEDS: DIVALPROEX SODIUM SPRINKLE 125 MG CAP PO SCH ×2 (08:36→21:17)
[2018-01-10 08:47] LABS: CALCIUM 9.3 mg/dl (8.5-10.1); CREATININE 1.01 mg/dl (0.60-1.20); POTASSIUM 3.8 mmol/L (3.5-5.1)
[2018-01-10] MEDS: ACETAMINOPHEN 325 MG TAB PO PRN (15:54)
[2018-01-10 16:19] VITALS: BP 121/74; PULSE 96; TEMP 37.3; O2SAT 94
--- NOTE | 2018-01-10 17:26 | Family Medicine Progress Note ---
Progress Note Date of Service Jan 10, 2018. Subjective Pt evaluation today including: conversation w/ patient, conversation w/ family , physical exam, chart review, lab review, review of inpatient medication list Pain: Patient denies pain PO Intake: tolerating well Voiding: no voiding problems Patient continues to remain at her baseline today, per family. Additional Comments: Unable to assess due to patient's baseline dementia but she will answer "no" when asked about pain in chest, belly, back, or legs. Medications Current Inpatient Medications Medications (Trade) Dose Ordered Sig/Minerva Route Start Time Stop Time Status Last Admin Dose Admin Acetaminophen (Tylenol Tab) 650 mg Q4H PRN PO 01/07/18 14:15 02/06/18 14:14 01/10/18 15:54 650 MG Magnesium Hydroxide (Milk Of Magnesia Susp) 30 ml Q6H PRN PO 01/07/18 14:15 02/06/18 14:14 Polyethylene (Miralax Powder Packet) 17 gm DAILY PRN PO 01/07/18 14:45 02/06/18 14:44 Ondansetron HCl (Zofran Inj) 4 mg Q6H PRN IV 01/07/18 14:15 02/06/18 14:14 Acetaminophen 650 mg/Empty Bag 65 ml @ 260 mls/hr Q6H PRN IV 01/07/18 16:45 02/06/18 16:44 01/07/18 20:09 260 MLS/HR Enoxaparin Sodium (Lovenox Inj) 40 mg Q24H SQ 01/07/18 21:00 02/06/18 20:59 01/09/18 20:37 40 MG Al Hydrox/Mg Hydrox/Simethicone (Maalox Max Susp) 15 ml Q4H PRN PO 01/07/18 17:45 02/06/18 17:44 Aspirin (Ecotrin Tab) 81 mg DAILY PO 01/08/18 09:00 02/07/18 08:59 01/10/18 08:36 81 MG Calcium/Vitamin D (Caltrate Plus Tab) 1 tab BID PO 01/07/18 21:00 02/06/18 20:59 01/10/18 08:36 1 TAB Levothyroxine Sodium (Synthroid Tab) 88 mcg QPM PO 01/07/18 21:00 02/06/18 20:59 01/09/18 20:37 88 MCG Simvastatin (Zocor Tab) 40 mg QPM PO 01/07/18 21:00 02/06/18 20:59 01/09/18 20:37 40 MG Divalproex Sodium (Depakote Sprinkle Cap) 500 mg BID PO 01/08/18 21:00 02/07/18 20:59 01/10/18 08:36 500 MG Objective Vital Signs Date Time Temp Pulse Resp B/P (MAP) Pulse Ox O2 Delivery O2 Flow Rate FiO2 01/10/18 16:19 37.3 96 20 121/74 (90) 94 Room Air 01/10/18 08:40 Room Air 01/10/18 07:24 36.8 89 20 133/76 (95) 95 Room Air 01/10/18 00:00 Room Air 01/09/18 23:54 36.9 98 20 145/80 (101) 92 Room Air Physical Exam General Appearance: WD/WN, no apparent distress Eyes: normal inspection, PERRL, sclerae normal ENT: normal ENT inspection, pharynx normal Neck: supple, no adenopathy, no JVD, no carotid bruits, trachea midline Respiratory/Chest: chest non-tender, lungs clear, normal breath sounds, no respiratory distress, no accessory muscle use Cardiovascular: regular rate, rhythm, no edema, no gallop, no JVD, no murmur Abdomen: normal bowel sounds, non tender, soft Extremities: normal range of motion, non-tender, normal inspection, no pedal edema, no calf tenderness Neurologic/Psychiatric: no motor/sensory deficits, + disoriented (oriented to self) Skin: normal color, warm/dry, no rash Laboratory Results Last Resulted 01/10/18 07:44 Last Resulted 01/10/18 07:44 Assessment and Plan Claire is an 82 yo female with PMH advanced dementia, Hypothyroidism, HLD, and osteoporosis admitted for witnessed seizure 01/07/18. She has been previously admitted for similar "syncopal" episodes twice in the past 6 months. Seizure lasted about 7 minutes and she had urinary incontinence and bit her tongue, and she was been agitated after the episode for about 36 hours. She bounced back to her baseline nicely and without issue. She is currently awaiting placement at [facility]. Seizures, 1st witnessed Non contrast CT Head negative for acute pathology/bleed; could consider further imaging (MRI/CT w contrast) if seizes again however agitation would likely prevent successful scan Continue on Depakote 500mg BID; adjust dose prn; changed to sprinkle regimen Labs: TSH, BMP, liver profile, mag, b12 all WNL Consider neuro consult if seizes again Patient has had no seizure episodes since admission, has become less agitated. Dementia clinical data manager discussion for placement options, for transfer tomorrow Much more alert, less agitated, more "herself" per family Recent Hx of falls PT/OT ordered ? pneumonia Afebrile, nl WBC, clear lungs on exam, CXR shows no focal consolidation DCd abx from ED HLD Continue simvastatin 40 Hypothyroidism TSH normal Continue home dose 88mcg levothyroxine Osteoporosis Continue home supplements DVTP: lovenox, SCD, MIL Code: Full Dispo: Med surg, PT/OT on board for discharge eval, for placement/home tomorrow Resident Physician Supervision Note: I interviewed and examined the patient. Discussed with Dr. Harvey and agree with findings and plan as documented in the note. Any exceptions or clarifications are listed here: None Documented By: Barber Marin doing well no meaningful hPI or ROS but happy and eating vitals noted nad breathing unlabored no pallor or icterus just ate a bag of doritos and is smiling seizure - none further dementia continue depakote - juniper once accepted Resident Tracking Resident Involvement: Resident Care Provided Care Provided: Adult Hospital Medicine
[2018-01-10] MEDS: LEVOTHYROXINE 88 MCG TAB PO SCH (21:16)
[2018-01-10] MEDS: ENOXAPARIN 40 MG/0.4 ML SYR SQ SCH (21:16)
[2018-01-10] MEDS: SIMVASTATIN 40 MG TAB PO SCH (21:16)
[2018-01-10 23:23] VITALS: BP 151/82; PULSE 90; TEMP 36.9; O2SAT 91
[2018-01-11] MEDS: ACETAMINOPHEN 325 MG TAB PO PRN ×3 (00:01→22:20)
[2018-01-11] MEDS: CALCIUM 600MG + VIT D 400 IU TAB PO SCH ×2 (07:49→20:32)
[2018-01-11] MEDS: DIVALPROEX SODIUM SPRINKLE 125 MG CAP PO SCH ×2 (07:49→20:37)
[2018-01-11] MEDS: ASPIRIN 81 MG ECTAB PO SCH (07:50)
--- NOTE | 2018-01-11 11:56 | Family Medicine Progress Note ---
Progress Note Date of Service Jan 11, 2018. Subjective Pt evaluation today including: conversation w/ patient, physical exam, chart review Pain: Denies pain PO Intake: Tolerating well Voiding: no voiding problems Patient remains in good spirits. States she wants to "get out of here." Additional Comments: Unable to assess ROS due to patient's baseline advanced dementia. She does state she has no complaints and no pain on questioning Medications Current Inpatient Medications Medications (Trade) Dose Ordered Sig/Minerva Route Start Time Stop Time Status Last Admin Dose Admin Acetaminophen (Tylenol Tab) 650 mg Q4H PRN PO 01/07/18 14:15 02/06/18 14:14 01/11/18 00:01 650 MG Magnesium Hydroxide (Milk Of Magnesia Susp) 30 ml Q6H PRN PO 01/07/18 14:15 02/06/18 14:14 Polyethylene (Miralax Powder Packet) 17 gm DAILY PRN PO 01/07/18 14:45 02/06/18 14:44 Ondansetron HCl (Zofran Inj) 4 mg Q6H PRN IV 01/07/18 14:15 02/06/18 14:14 Acetaminophen 650 mg/Empty Bag 65 ml @ 260 mls/hr Q6H PRN IV 01/07/18 16:45 02/06/18 16:44 01/07/18 20:09 260 MLS/HR Enoxaparin Sodium (Lovenox Inj) 40 mg Q24H SQ 01/07/18 21:00 02/06/18 20:59 01/10/18 21:16 40 MG Al Hydrox/Mg Hydrox/Simethicone (Maalox Max Susp) 15 ml Q4H PRN PO 01/07/18 17:45 02/06/18 17:44 Aspirin (Ecotrin Tab) 81 mg DAILY PO 01/08/18 09:00 02/07/18 08:59 01/11/18 07:50 81 MG Calcium/Vitamin D (Caltrate Plus Tab) 1 tab BID PO 01/07/18 21:00 02/06/18 20:59 01/11/18 07:49 1 TAB Levothyroxine Sodium (Synthroid Tab) 88 mcg QPM PO 01/07/18 21:00 02/06/18 20:59 01/10/18 21:16 88 MCG Simvastatin (Zocor Tab) 40 mg QPM PO 01/07/18 21:00 02/06/18 20:59 01/10/18 21:16 40 MG Divalproex Sodium (Depakote Sprinkle Cap) 500 mg BID PO 01/08/18 21:00 02/07/18 20:59 01/11/18 07:49 500 MG Objective Vital Signs Date Time Temp Pulse Resp B/P (MAP) Pulse Ox O2 Delivery O2 Flow Rate FiO2 01/11/18 08:00 Room Air 01/10/18 23:59 Room Air 01/10/18 23:23 36.9 90 18 151/82 (105) 91 Room Air 01/10/18 16:19 37.3 96 20 121/74 (90) 94 Room Air 01/10/18 16:00 Room Air Physical Exam General Appearance: WD/WN, no apparent distress Eyes: normal inspection, PERRL, EOMI, sclerae normal ENT: hearing grossly normal, pharynx normal Neck: supple, no adenopathy, no JVD, no carotid bruits, trachea midline Respiratory/Chest: chest non-tender, lungs clear, normal breath sounds, no respiratory distress, no accessory muscle use Cardiovascular: regular rate, rhythm, no edema, no JVD, no murmur Abdomen: normal bowel sounds, non tender, soft Extremities: non-tender, normal inspection, no pedal edema, no calf tenderness Neurologic/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 She has been previously admitted for similar "syncopal" episodes twice in the past 6 months. Seizure lasted about 7 minutes and she had urinary incontinence and bit her tongue, and she was been agitated after the episode for about 36 hours. She bounced back to her baseline nicely and without issue. She is currently awaiting placement at [facility] and per vocational case manager, this will not happen likely until saturday. Seizures, 1st witnessed Non contrast CT Head negative for acute pathology/bleed; could consider further imaging (MRI/CT w contrast) if seizes again however agitation would likely prevent successful scan Continue on Depakote 500mg BID; adjust dose prn; changed to sprinkle regimen Labs: TSH, BMP, liver profile, mag, b12 all WNL Consider neuro consult if seizes again Patient has had no seizure episodes since admission, has become less agitated. Dementia clinical documentation manager discussion for placement options, for transfer to [facility] likely on Saturday Much more alert, less agitated, more "herself" per family Recent Hx of falls PT/OT ordered ? pneumonia Afebrile, nl WBC, clear lungs on exam, CXR shows no focal consolidation DCd abx from ED HLD Continue simvastatin 40 Hypothyroidism TSH normal Continue home dose 88mcg levothyroxine Osteoporosis Continue home supplements DVTP: lovenox, SCD, MIL Code: Full Dispo: Med surg, PT/OT have seen for discharge eval, for placement/home Saturday Resident Physician Supervision Note: I interviewed and examined the patient. Discussed with Dr. Link and agree with findings and plan as documented in the note. Any exceptions or clarifications are listed here: None Documented By: Barber Marin no new HPI sitting in chair present pleasant and calm. case managemetn notes no beds at [facility] till probably saturday vitals noted nad breathing unlabored no focal deficits dementia, seizures -doing well in hospital on depakote - SNF once available Resident Tracking Resident Involvement: Resident Care Provided Care Provided: Adult Hospital Medicine
[2018-01-11 15:22] VITALS: BP 120/68; PULSE 89; TEMP 36.8; O2SAT 92
[2018-01-11] MEDS: LEVOTHYROXINE 88 MCG TAB PO SCH (20:32)
[2018-01-11] MEDS: SIMVASTATIN 40 MG TAB PO SCH (20:32)
[2018-01-11] MEDS: ENOXAPARIN 40 MG/0.4 ML SYR SQ SCH (20:39)
[2018-01-11 22:15] VITALS: BP 128/73; PULSE 91; TEMP 36.8; O2SAT 97
[2018-01-12] MEDS: ASPIRIN 81 MG ECTAB PO SCH (07:47)
[2018-01-12] MEDS: DIVALPROEX SODIUM SPRINKLE 125 MG CAP PO SCH ×2 (07:47→20:43)
[2018-01-12] MEDS: CALCIUM 600MG + VIT D 400 IU TAB PO SCH ×2 (07:47→20:41)
[2018-01-12] MEDS: ACETAMINOPHEN 325 MG TAB PO PRN ×4 (07:47→23:19)
[2018-01-12 15:35] VITALS: BP 153/85; PULSE 109; TEMP 36.7; O2SAT 92
[2018-01-12 15:50] VITALS: BP 153/85; PULSE 109; TEMP 36.7; O2SAT 92
--- NOTE | 2018-01-12 18:10 | Family Medicine Progress Note ---
Progress Note Date of Service Jan 12, 2018. Subjective Pt evaluation today including: conversation w/ patient, physical exam, chart review, lab review, review of inpatient medication list Pain: denies pain PO Intake: tolerating well Voiding: no voiding problems Continues to do well. Additional Comments: Unable to assess ROS due to patient's baseline advanced dementia Medications Current Inpatient Medications Medications (Trade) Dose Ordered Sig/Minerva Route Start Time Stop Time Status Last Admin Dose Admin Acetaminophen (Tylenol Tab) 650 mg Q4H PRN PO 01/07/18 14:15 02/06/18 14:14 01/12/18 16:16 650 MG Magnesium Hydroxide (Milk Of Magnesia Susp) 30 ml Q6H PRN PO 01/07/18 14:15 02/06/18 14:14 Polyethylene (Miralax Powder Packet) 17 gm DAILY PRN PO 01/07/18 14:45 02/06/18 14:44 Ondansetron HCl (Zofran Inj) 4 mg Q6H PRN IV 01/07/18 14:15 02/06/18 14:14 Acetaminophen 650 mg/Empty Bag 65 ml @ 260 mls/hr Q6H PRN IV 01/07/18 16:45 02/06/18 16:44 01/07/18 20:09 260 MLS/HR Enoxaparin Sodium (Lovenox Inj) 40 mg Q24H SQ 01/07/18 21:00 02/06/18 20:59 01/12/18 20:42 40 MG Al Hydrox/Mg Hydrox/Simethicone (Maalox Max Susp) 15 ml Q4H PRN PO 01/07/18 17:45 02/06/18 17:44 Aspirin (Ecotrin Tab) 81 mg DAILY PO 01/08/18 09:00 02/07/18 08:59 01/12/18 07:47 81 MG Calcium/Vitamin D (Caltrate Plus Tab) 1 tab BID PO 01/07/18 21:00 02/06/18 20:59 01/12/18 20:41 1 TAB Levothyroxine Sodium (Synthroid Tab) 88 mcg QPM PO 01/07/18 21:00 02/06/18 20:59 01/12/18 20:41 88 MCG Simvastatin (Zocor Tab) 40 mg QPM PO 01/07/18 21:00 02/06/18 20:59 01/12/18 20:41 40 MG Divalproex Sodium (Depakote Sprinkle Cap) 500 mg BID PO 01/08/18 21:00 02/07/18 20:59 01/12/18 20:43 500 MG Objective Vital Signs Date Time Temp Pulse Resp B/P (MAP) Pulse Ox O2 Delivery O2 Flow Rate FiO2 01/12/18 16:20 Room Air 01/12/18 15:50 36.7 109 18 153/85 (107) 92 Room Air 01/12/18 15:35 36.7 109 18 153/85 (107) 92 Room Air 01/12/18 08:00 Room Air 01/12/18 00:00 Room Air Physical Exam General Appearance: WD/WN, no apparent distress Eyes: normal inspection, PERRL, sclerae normal ENT: hearing grossly normal Neck: no adenopathy, no carotid bruits, trachea midline Respiratory/Chest: chest non-tender, lungs clear, normal breath sounds, no respiratory distress, no accessory muscle use Cardiovascular: regular rate, rhythm, no edema, no gallop, no JVD, no murmur Abdomen: normal bowel sounds, non tender, soft Extremities: normal range of motion, non-tender, normal inspection, no pedal edema Neurologic/Psychiatric: no motor/sensory deficits, alert, normal mood/affect, + disoriented Skin: normal color, warm/dry, no rash Laboratory Results Last Resulted 01/10/18 07:44 Last Resulted 01/10/18 07:44 Assessment and Plan Claire is an 82 yo female with PMH advanced dementia, Hypothyroidism, HLD, and osteoporosis admitted for witnessed seizure 01/07/18. She has been previously admitted for similar "syncopal" episodes twice in the past 6 months. Seizure lasted about 7 minutes and she had urinary incontinence and bit her tongue, and she was been agitated after the episode for about 36 hours. She bounced back to her baseline nicely and without issue. She is currently awaiting placement at [facility] and per correctional casework specialist, this will not happen likely until saturday. Seizures, 1st witnessed Non contrast CT Head negative for acute pathology/bleed; could consider further imaging (MRI/CT w contrast) if seizes again however agitation would likely prevent successful scan Continue on Depakote 500mg BID; adjust dose prn; changed to sprinkle regimen Labs: TSH, BMP, liver profile, mag, b12 all WNL Consider neuro consult if seizes again Patient has had no seizure episodes since admission, has become less agitated. Depakote level and LFTs tomorrow AM Dementia manager transmission discussion for placement options, for transfer to [facility] likely on Saturday Much more alert, less agitated, more "herself" per family Recent Hx of falls PT/OT ordered ? pneumonia Afebrile, nl WBC, clear lungs on exam, CXR shows no focal consolidation DCd abx from ED HLD Continue simvastatin 40 Hypothyroidism TSH normal Continue home dose 88mcg levothyroxine Osteoporosis Continue home supplements DVTP: lovenox, SCD, MIL Code: Full Dispo: Med surg, PT/OT have seen for discharge evpa, for placement/home Saturday Resident Physician Supervision Note: I interviewed and examined the patient. Discussed with Dr. Harvey and agree with findings and plan as documented in the note. Any exceptions or clarifications are listed here: None Documented By: Barber Marin about the same, no new problems doing well per family no new problems per nursing still no placmeent at [facility] vitals noted nad breathing unlabored pleasant in chair dementia, seizures -doing well on depakote 500mg bid -level and LFTs in AM -stable for SNF when available Resident Tracking Resident Involvement: Resident Care Provided Care Provided: Adult Hospital Medicine
[2018-01-12] MEDS: LEVOTHYROXINE 88 MCG TAB PO SCH (20:41)
[2018-01-12] MEDS: SIMVASTATIN 40 MG TAB PO SCH (20:41)
[2018-01-12] MEDS: ENOXAPARIN 40 MG/0.4 ML SYR SQ SCH (20:42)
[2018-01-13 07:51] VITALS: BP 132/87; PULSE 70; TEMP 36.6; O2SAT 96
[2018-01-13] MEDS: CALCIUM 600MG + VIT D 400 IU TAB PO SCH (07:52)
[2018-01-13] MEDS: ASPIRIN 81 MG ECTAB PO SCH (07:52)
[2018-01-13] MEDS: DIVALPROEX SODIUM SPRINKLE 125 MG CAP PO SCH (07:52)
[2018-01-13 08:03] LABS: ALBUMIN 3.1 gm/dl (3.4-5.0); ALKALINE PHOSPHATASE 61 U/L (45-117); ALT/SGPT 26 U/L (12-78); AST/SGOT 21 U/L (15-37); TOTAL PROTEIN 7.4 gm/dl (6.4-8.2)
[2018-01-13] MEDS ORDERED: DIVA1CAP5 PO (11:36)
--- NOTE | 2018-01-13 11:50 | Discharge Instructions ---
Discharge Instructions Date of Service Jan 13, 2018. Admission Reason for Admission: Seizure Discharge Discharge Diagnosis / Problem: Seizure Discharge Goals Goal(s): Improve disease control, Diagnostic testing, Therapeutic intervention Activity Recommendations Activity Level: Up Ad Lisa (requires walker), OOB In Chair Therapies: Physical Therapy, Occupational Therapy Exercise/Sports Limitations: as tolerated . Additional Information Patient informed of condition: Yes Advance Directives: No DNR: No Level of Care: Skilled Communicable Disease: No Prognosis: Stable Walsh Catheter: No Instructions / Follow-Up Instructions / Follow-Up Claire is an 82 yo female with PMH advanced dementia, Hypothyroidism, HLD, and osteoporosis admitted for witnessed seizure 01/07/18. She has been previously admitted for similar "syncopal" episodes twice in the past 6 months. Seizure lasted about 7 minutes and she had urinary incontinence and bit her tongue, and she was been agitated after the episode for about 36 hours. She bounced back to her baseline nicely and without issue. Seizures, 1st witnessed - Non contrast CT Head negative and normal. - New medication begun here: recommend continue indefinitely. Continue on Depakote 500mg BID. - Patient has had no seizure episodes since admission. - Depakote level is 93 on discharge. Level is therapeutic, continue current dose. Recommend repeat Valproic Acid Level in 3 months (04/12/18). - AST 21, ALT 26. Liver function normal. Recommend recheck in 3 months (04/12/18) Dementia At baseline. No 1:1. HLD Continue simvastatin 40 Hypothyroidism TSH normal: 1.09 Continue home dose 88mcg levothyroxine Osteoporosis Continue home supplements DVTP: given lovenox, SCD, MIL Code: Full, confirmed by son Current Hospital Diet Patient's current hospital diet: Regular Diet Discharge Diet Recommended Diet: Regular Diet Pending Studies Studies pending at discharge: no Medical Emergencies . Who to Call and When: Medical Emergencies: If at any time you feel your situation is an emergency, please call 911 immediately. . Non-Emergent Contact Non-Emergency issues call your: Primary Care Provider . . "Provider Documentation" section prepared by Shahrzad Lua. . Core Measure Problem Core Measures: None
[2018-01-13 12:00] VITALS: BP 132/87; PULSE 70; TEMP 36.6; O2SAT 96
--- NOTE | 2018-01-13 22:25 | Discharge Summary ---
Discharge Summary Date of Service Jan 13, 2018. Discharge Summary Admission Date: Jan 07, 2018 at 14:17 Discharge Date: Jan 13, 2018 Discharge Disposition: retirement facility Principal Diagnosis: Seizure Problems/Secondary Diagnoses: Advanced dementia Immunizations: History of Tetanus Vaccine?: Yes History of Pneumococcal: Unknown History of Hepatitis B Vaccine: Unknown Medication Reconciliation New Medications: Divalproex Sodium (Divalproex Sodium) 125 Mg Cap 500 MG PO BID for 30 Days, #240 CAP Continued Medications: Alendronate Sodium (Alendronate Sodium) 35 Mg Tab 35 MG PO WK Aspirin Enteric Coated (Ecotrin Or Generic) 81 Mg Tab 81 MG PO DAILY, TAB Calcium/Vitamin D (Os-Bakari 500 Plus D) Tab 1 TAB PO BID Cholecalciferol (Vitamin D3) 2,000 Unit Cap 1 CAP PO DAILY, CAP Levothyroxine Sodium (Levothyroxine Sodium) 88 Mcg Tab 88 MCG PO QPM Simvastatin (Simvastatin) 40 Mg Tab 40 MG PO QPM Discharge Exam Pt resting comfortably in bed, eating well, drinking well, voiding without issues. Has no complaints on day of discharge. ROS See HPI for pertinent positives and negatives. PE afebrile, vital signs stable GENERAL: Awake, alert, in no distress HENT: Normocephalic, old bruise on her left cheek. EYES: Normal conjunctiva. Sclera non-icteric. RESPIRATORY: Clear to auscultation. CARDIAC: Regular rate, normal rhythm. Extremities warm and well perfused. Pulses equal. ABDOMEN: Soft, non-distended. No tenderness to palpation. No rebound or guarding. No masses. LOWER EXTREMITIES: Calves are equal size bilaterally and non-tender. No edema. No discoloration. NEURO: No motor deficits noted. SKIN: No rash or jaundice noted. Hospital Course Claire is an 82 yo female with PMH advanced dementia, Hypothyroidism, HLD, and osteoporosis admitted for witnessed seizure 01/07/18. She has been previously admitted for similar "syncopal" episodes twice in the past 6 months. Seizure lasted about 7 minutes and she had urinary incontinence and bit her tongue, and she was been agitated after the episode for about 36 hours. She bounced back to her baseline nicely and without issue. Seizures, 1st witnessed - Non contrast CT Head negative and normal. - New medication begun here: recommend continue indefinitely. Continue on Depakote 500mg BID. - Patient has had no seizure episodes since admission. - Depakote level is 93 on discharge. Level is therapeutic, continue current dose. Recommend repeat Valproic Acid Level in 3 months (04/12/18). - AST 21, ALT 26. Liver function normal. Recommend recheck in 3 months (04/12/18) Dementia At baseline. No 1:1. HLD Continue simvastatin 40 Hypothyroidism TSH normal: 1.09 Continue home dose 88mcg levothyroxine Osteoporosis Continue home supplements DVTP: given lovenox, SCD, MIL Code: Full, confirmed by son Resident Physician Supervision Note: I interviewed and examined the patient. Discussed with the resident physician and agree with findings and plan as documented in the note. At the time of my examination, the patient was awake and eating lunch. Her was at the bedside and in agreement with the current discharge plan. Documented By: Fareed Gale Total Time Spent: Greater than 30 minutes This includes examination of the patient, discharge planning, medication reconciliation, and communication with other providers. Discharge Instructions Please refer to the electronic Patient Visit Report (Discharge Instructions) for additional information. Additional Copies To Braxton Rosado M.D. Resident Tracking Resident Involvement: Resident Care Provided Care Provided: Adult [facility] Medicine
== END 2018-01-13 13:10 | DRG 101 ==
LOC: EDBD 11:12 → C.EDC 11:14 → C.MS2W 14:17 → EDBEDREQ 14:41 → ENRESERV 14:48 → C.MS2W 01-08 15:26
PROVIDERS: ADMIT Family Medicine; ATTEND Family Medicine
DX: R56.9 Unspecified convulsions (principal); F03.91 Unspecified dementia, unspecified severity, with behavioral disturbance; R29.6 Repeated falls; E78.5 Hyperlipidemia, unspecified; E03.9 Hypothyroidism, unspecified; M81.0 Age-related osteoporosis without current pathological fracture; Z79.82 Long term (current) use of aspirin; Z79.83 Long term (current) use of bisphosphonates; Z79.899 Other long term (current) drug therapy